=== PATIENT | male | born 1980 | race Caucasian/White ===

== ENCOUNTER 2016-05-07 18:23 | Emergency (ER) | payer SELFPAY ==
[2016-05-07] MEDS ORDERED: DEXAMETHASONE SOD PHOS INJ 10 MG/1 ML VIAL IM ONE (23:04)
--- NOTE | 2016-05-07 23:04 | ER Document Report ---
ED Extremity Problem, Lower - General Chief Complaint: Leg Pain Stated Complaint: LEFT LEG NUMBNESS Mode of Arrival: Ambulatory Information source: Patient Notes: 36 y/o M presents to ED intermittently persistent numbness to right leg. Pt reports noted numbness to right mid anterior thigh that began last week. Reports numbness has intermittently persisted and seems to have progressed to lateral upper right tib fib area. 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 States has had some mild lower back pain this week as well. Patient states he came into the ED because he has a family member who has a history of blood clots and googled symptoms and is concerned he may have a blood clot. Denies leg swelling, erythema, or warmth. Denies fall or trauma, fever, extremity weakness, saddle numbness, bowel or bladder disfunction. Denies hx of intravenous drug use. TRAVEL OUTSIDE OF THE [place] IN LAST 30 DAYS: No - HPI Patient complains to provider of: Altered sensation Location: Leg Severity: Mild Pain Level: 2 Recent injury: No Exacerbated by: Nothing Relieved by: Nothing - Related Data Allergies/Adverse Reactions: No Known Allergies Allergy (Verified 05/07/16 18:34) Past Medical History - General Information source: Patient - Social History Smoking Status: Never Smoker Frequency of alcohol use: None Drug Abuse: None Lives with: Family Family History: None, Hypertension Patient has suicidal ideation: No Patient has homicidal ideation: No Pulmonary Medical History: Reports: Hx Asthma Renal/ Medical History: Denies: Hx Peritoneal Dialysis Musculoskeltal Medical History: Reports Hx Musculoskeletal Trauma Psychiatric Medical History: Reports: Hx Attention Deficit Hyperactivity Disorder Traumatic Medical History: Reports: Hx Fractures - forearm Past Surgical History: Reports: Hx Orthopedic Surgery - RFA - Immunizations Immunizations up to date: Yes Hx Diphtheria, Pertussis, Tetanus Vaccination: Yes - 02/07/2012 Review of Systems - Review of Systems Constitutional: No symptoms reported EENT: No symptoms reported Cardiovascular: No symptoms reported Respiratory: No symptoms reported Gastrointestinal: No symptoms reported Genitourinary: No symptoms reported Male Genitourinary: No symptoms reported Musculoskeletal: See HPI Skin: No symptoms reported Hematologic/Lymphatic: No symptoms reported Neurological/Psychological: See HPI -: Yes All other systems reviewed and negative Physical Exam - Vital signs Vitals: Temp Pulse Resp BP Pulse Ox 97.7 F 64 16 121/72 98 05/07/16 18:35 05/07/16 18:35 05/07/16 18:35 05/07/16 18:35 05/07/16 18:35 Interpretation: Normal - General General appearance: Appears well, Alert In distress: None - HEENT Head: Normocephalic, Atraumatic Eyes: Normal Pupils: PERRL - Respiratory Respiratory status: No respiratory distress Chest status: Nontender Breath sounds: Normal Chest palpation: Normal - Cardiovascular Rhythm: Regular Heart sounds: Normal auscultation Murmur: No Pulses: Normal: Radial, Posterior tibial, Dorsalis pedis Normal capillary refill: Yes - Abdominal Inspection: Normal Distension: No distension Bowel sounds: Normal Tenderness: Nontender Organomegaly: No organomegaly - Back Back: Tender - Mild tenderness to palpation to bilateral paraspinal musculature lower lumbar level. Full range of motion without increased or worsening paresthesias or neurologic deficits.. No: Normal, Nontender, Deformity/step-off , CVA tenderness, Vertebra tenderness, Scars, Scoliosis, Wounds, Other - Extremities General upper extremity: Normal inspection, Nontender, Normal color, Normal ROM , Normal strength, Normal temperature. No: Edema General lower extremity: Normal inspection, Nontender, Normal color, Normal ROM , Normal strength, Normal temperature, Normal weight bearing, Other - Patient has localized mild numbness/decreased fine sensation to anterior lateral right lower extremity/tib-fib area at L4/L5 dermatome distribution level. Motor function intact. Neurovascular function and sensation to foot and upper leg and all of posterior leg is intact.. No: Edema, Lani's sign - Neurological Neuro grossly intact: Yes Cognition: Normal Orientation: AAOx4 Ortiz Coma Scale Eye Opening: Spontaneous Ortiz Coma Scale Verbal: Oriented Ortiz Coma Scale Motor: Obeys Commands Ortiz Coma Scale Total: 15 Speech: Normal Cranial nerves: Normal Cerebellar coordination: Normal Motor strength normal: LUE, RUE, LLE, RLE Additional motor exam normals: Equal patternmaker Sensory: Normal Knee - Reflex grade: 2 = Normal - Psychological Associated symptoms: Normal affect, Normal mood - Skin Skin Temperature: Warm Skin Moisture: Dry Skin Color: Normal Course - Re-evaluation Re-evalutation: 05/07/16 23:08 Patient hemodynamically stable, in no distress, afebrile. X-rays unremarkable. Ultrasound of right lower leg negative for DVT. The patient presents with back pain without signs of spinal cord compression, cauda equina syndrome, infection, aneurysm, or other serious etiology. The patient is neurologically intact, independently and steadily ambulatory without paresthesias or neurological deficits. Given the extremely low risk of these diagnoses further testing and evaluation for these possibilities does not appear to be indicated at this time. Patient appears stable for discharge and agrees with home care, follow-up, and ED return precautions. - Vital Signs Vital signs: Temp Pulse Resp BP Pulse Ox 97.9 F 87 17 111/74 98 05/07/16 23:20 05/07/16 23:20 05/07/16 23:20 05/07/16 23:20 05/07/16 23:20 - Diagnostic Test Radiology reviewed: Image reviewed, Reports reviewed Discharge - Discharge Clinical Impression: Lumbar radiculopathy Low back pain Qualifiers: Chronicity: chronic Back pain laterality: bilateral Sciatica presence: without sciatica Qualified Code(s): M54.5 - Low back pain Condition: Stable Disposition: HOME, SELF-CARE Additional Instructions: LOW BACK PAIN: Three out of every four people will have an episode of disabling back pain during their lifetime. Most commonly the pain is due to straining of the muscles and ligaments in the low back. Usual treatment includes: (1) Rest on a firm surface. Avoid lying on your stomach. (2) Ice pack the painful area. After a few days, gentle heat may be used intermittently to relax the area, or ice packs can be continued. (3) Medication may be needed -- muscle relaxers and antiinflammatory medicines are commonly used. (4) As the back improves, exercises are prescribed to strengthen the back and abdominal muscles. Your doctor will advise you on the proper care for your back at each stage in your recovery. You may be better in a few days -- or healing may take several weeks. If new symptoms of a "herniated disc" (radiation of pain, numbness, or tingling down the back of the leg or weakness in the leg) occur, you should be re-examined. Further testing may be necessary. Radiculopathy Radiculopathy is irritation of a nerve. Sometimes this is called "pinched nerve." The pain can be sharp and stabbing, constant and dull, or burning in nature. The pain can occur in any area of the chest, shoulders, or arms. Sometimes the pain is provoked by coughing or moving. Radiculopathy can be caused by physical pressure on a nerve, such as a herniated disc or swollen joint in the spine. It can also be caused by viral infections within the nerve or by nerve damage due to diabetes or blood vessel disease. Radicular pain is treated with antiinflammatory medicine. Injections may help resistant cases, if we can identify a single nerve that's causing the pain. Surgery is usually not necessary. If symptoms do not improve with time, you may need additional testing, such as an MRI or EMG (electromyogram). Return if there is local weakness or numbness, shortness of breath, increasing pain, or other new symptoms. STEROID MEDICATION: You have been given an injection of medicine of the cortisone/steroid class. This medication is used to control inflammation or allergy. It is often continued as a pill for a short period of time, until the acute process subsides. There are usually no side effects from short-term use of cortisone-like medications. Some persons feel an increased sense of well-being and are not sleepy at bedtime. Long-term use of cortisone medications is best avoided, unless required for a severe condition. If your condition does not remit, or relapses after the course of corticosteroid medication, you should consult your physician. Anti-Inflammatory Medication You have received a prescription for an antiinflammatory agent. This is an excellent, safe drug for pain control. In addition, it has potent antiinflammatory effects which are beneficial, especially in the treatment of injuries, arthritis, or tendonitis. It's best to take this medicine with food. Persons with ulcer disease or allergy to aspirin should notify their physician of this before taking this drug. Take the medication exactly as prescribed. Don't take additional doses unless instructed to do so by your doctor. If you develop wheezing, shortness of breath, hives, faintness, stomach pain, vomiting, or dark black stools, return for re-evaluation at once. MUSCLE RELAXERS: Muscle relaxing medications are usually prescribed for acute muscle spasm or injury to the neck and back. They are often combined with antiinflammatory pain medication for increased relief. You may stop the muscle relaxer when the pain and stiffness have improved. Start the medication again if spasms recur. Muscle relaxers may cause drowsiness, especially with the first dose. Do not operate machinery or drive while under the effects of the medication. Most muscle relaxers last up to 24 hours. Do not combine the medication with alcohol. ICE PACKS: Apply ice packs frequently against the painful area. Many different schedules are recommended, such as "20 minutes on, 20 minutes off" or "one hour ice, two hours rest." If you need to work, you may need to go longer between ice treatments. You should plan to have the area ice packed AT LEAST one fourth of the time. The ice should be applied over the wrap, tape, or splint, or over a layer of cloth -- not directly against the skin. Some ice bags have a built-in cloth and can be put directly on the skin. WARM PACKS: After approximately two days, apply gentle heat (such as a heating pad or hot water bottle) for about 20 to 30 minutes about every two hours -- at least four times daily. Warmth and elevation will help you make a more rapid recovery , and will ease the pain considerably. Do not use HOT heat, and never apply heat for longer than 30 minutes. The continuous heat can invisibly damage skin and muscles -- even when no burn is seen on the surface. Damaged muscles can make you MORE sore. FOLLOW-UP CARE: Your ultrasound was negative for blood clot today and your lower back x-ray was normal. Follow-up with your primary care provider this week. Return to the emergency department for any worsening symptoms or concerns. Prescriptions: Methocarbamol [Robaxin 500 mg Tablet] 500 mg PO Q8HP PRN #10 tablet PRN Reason: Naproxen 500 mg PO BIDP PRN #10 tablet PRN Reason: Referrals: ABBE ZAMORANO MD [ACTIVE STAFF] - Follow up tomorrow
[2016-05-07 23:34] VITALS: BP 111/74
--- NOTE | 2016-05-08 17:41 | XCELERA REPORT ---
[address] [address] Lower Extremity Venous Evaluation Name: HUBER OWEN Age: 36 yrs Gender: Male : 1980 Patient Status: Preadmit Patient Location: ER Study Date: 05/07/2016 09:12 PM Procedure: Color flow and duplex imaging of the veins of the right lower extremity as well as the left Common Femoral vein. Reason For Study: RLE pain Ordering Physician: VERNA CARDOZO Performed By: Anatoly Osullivan Right Sided Venous Evaluation Normal vessel filling wall to wall, compression and augmentation as well as Colour flow down to the infrageniculate veins. Left Sided Venous Evaluation The left common femoral vein is fully compressible. Spontaneous and phasic flow is present in the left common femoral vein. Critical Findings Called in to the ER at about 1700. Interpretation Summary No duplex evidence of DVT or obstruction in the right lower extremity nor in the left Common Femoral vein. : VERNA CARDOZO > Zhao Bull
== END 2016-05-07 23:27 | disposition home or self-care (01) ==
LOC: ER 18:23
DX: M54.16 Radiculopathy, lumbar region (principal); R20.0 Anesthesia of skin; M54.5 Low back pain; J45.909 Unspecified asthma, uncomplicated; Z82.49 Family history of ischemic heart disease and other diseases of the circulatory system
CPT/HCPCS: 99284; 96372; 93971 ×2; 72110; J1100

== ENCOUNTER 2017-02-28 15:55 | Emergency (ER) | payer OTHER ==
[2017-02-28] MEDS ORDERED: KETOROLAC TROMETHAMINE INJ/PF 30 MG/1 ML SDV IM ONE (16:59)
[2017-02-28] MEDS ORDERED: DEXAMETHASONE SOD PHOS INJ 10 MG/1 ML VIAL IM ONE (16:59)
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
[2017-02-28] MEDS ORDERED: HYDROCODONE/ACETAMINOPHEN 5-325 MG (6 TAB/ER DISP) PO PRN (18:14)
[2017-02-28 18:35] VITALS: BP 124/71
== END 2017-02-28 18:35 | disposition home or self-care (01) ==
LOC: ER 15:55
DX: S32.029A Unspecified fracture of second lumbar vertebra, initial encounter for closed fracture (principal); V48.5XXA Car driver injured in noncollision transport accident in traffic accident, initial encounter; J45.909 Unspecified asthma, uncomplicated; F17.200 Nicotine dependence, unspecified, uncomplicated
CPT/HCPCS: 99283; 96372; 72110; J1885; J1100

== ENCOUNTER 2017-07-19 18:27 | Emergency (ER) | payer SELFPAY ==
[2017-07-19 18:37] VITALS: BP 121/69
[2017-07-19] MEDS ORDERED: OXYCODONE-ACETAMINOPHEN 5-325 MG TABLET PO ONE (20:22)
[2017-07-19] MEDS ORDERED: SULFAMETHOXAZOLE/TRIMETHOPRIM 800-160 MG TABLET PO ONE (20:22)
[2017-07-19] MEDS ORDERED: LIDOCAINE 1% INJ-PF (10 MG/ML) 30 ML SDV INJ ONE (20:22)
[2017-07-19] MEDS ORDERED: CEPHALEXIN 500 MG CAPSULE PO ONE (20:22)
--- NOTE | 2017-07-19 20:23 | ER Document Report ---
HPI - HPI Pain Level: 4 Context: Patient is a 37-year-old male presents emergent primary the chief complaint of abscess to the right ventral forearm. Patient states that he had had sites all over his arms that he had been taking it intermittently over the past couple weeks but this 1 got worse over the past couple of days with worsening swelling , redness, tenderness. He denies any previous history of out allergies or previous abscesses, history of MRSA. Denies any IV drug use - REPRODUCTIVE Reproductive: DENIES: : Past Medical History - Social History Smoking Status: Current Every Day Smoker Family History: None, Hypertension Pulmonary Medical History: Reports: Hx Asthma Renal/ Medical History: Denies: Hx Peritoneal Dialysis Musculoskeltal Medical History: Reports Hx Musculoskeletal Trauma Psychiatric Medical History: Reports: Hx Attention Deficit Hyperactivity Disorder Traumatic Medical History: Reports: Hx Fractures - forearm Past Surgical History: Reports: Hx Orthopedic Surgery - RFA - Immunizations Immunizations up to date: Yes Hx Diphtheria, Pertussis, Tetanus Vaccination: Yes - 02/07/2012 Vertical Provider Document - CONSTITUTIONAL Agree With Documented VS: Yes Notes: PHYSICAL EXAM GENERAL: Alert, interacts well. EXTREMITIES: Moves all 4 extremities spontaneously. [employer] strength equal bilaterally with capillary refill less than 2 seconds in bilateral upper extremity digits NEUROLOGICAL: Alert and oriented x4. Normal speech. PSYCH: Normal affect, normal mood. SKIN: Warm, dry, normal turgor. Patient with overlying edema, erythema and induration with central fluctuance of the right upper extremity anterior forearm consistent with abscess without any active drainage or bleeding - INFECTION CONTROL TRAVEL OUTSIDE OF THE [place] IN LAST 30 DAYS: No Course - Re-evaluation Re-evalutation: 07/19/17 21:13 Patient is a 37-year-old male presents with a abscess in the right upper extremity medial forearm. Site was anesthetized and incision and drained for 15 cc of purulent material. Packing was placed. No concerns for septic joint, sepsis given stable vital signs and localized infection. Will treat with p.o. antibiotics instruction to follow-up in 3 days. Patient agrees with plan stable for discharge home - Vital Signs Vital signs: Temp Pulse Resp BP Pulse Ox 99.1 F 86 20 121/69 96 07/19/17 18:36 07/19/17 18:36 07/19/17 18:36 07/19/17 18:36 07/19/17 18:36 Procedures - Incision and Drainage Right Arm Type: Simple Anesthetic type: 1% Lidocaine mL's of anesthetic: 20 Blade size: 11 I&D procedure: Betadine prep applied, Iodoform packing placed, Sterile dressing applied Incision Method: Incision made by scalpel Amount/type of drainage: 15 cc of purulent drainage Discharge - Discharge Clinical Impression: Abscess Condition: Good Disposition: HOME, SELF-CARE Additional Instructions: Please return in 3 days to have your wound packing removed and reevaluated. ABSCESS: You have an abscess (boil). This a pus-forming infection, usually due to staph. Some boils may be left to drain on their own, but most require lancing. From the time the tender lump first appears, it may be three or four days before the abscess is ready to eliz. Local heat and rest help at this stage of treatment. An antibiotic may prevent spread of the infection. Once the abscess is opened, packing may be placed into it. This is done so pus is not sealed inside by premature closure of the cavity. The packing will be removed at your follow-up visit or you may be advised to remove it yourself at home. Sometimes this packing must be replaced a few times during healing. The wound will heal with surprisingly little scar. Depending on the size and location of an abscess, healing can take one to four weeks. You may shower and wash the area around the incision site two or three times a day. Antibiotics may be prescribed, but are usually not necessary after an abscess has been drained. If you develop fever, chills, worsening pain, or increasing swelling in the area, call the doctor or return immediately. POST INCISION AND DRAINAGE: You have had an incision made to allow drainage of an abscess. The incision must remain open so that pus and debris can drain from the wound. If the abscess cavity is large, packing is placed. This keeps the tissues from collapsing and trapping pus inside, while the body shrinks the cavity. The packing may need to be replaced every day or two. The physician will instruct you on the packing. Keep a bulky dressing over the area. Replace it if it becomes saturated with blood or pus. Do not disturb the packing (if present). You may shower and cleanse the area with gentle soap and warm water two or three times a day. Local warmth may be soothing, and may promote faster healing. Return if you develop high fever or chills, or if you note spreading redness, increasing swelling, or increasing tenderness. MRSA CELLULITIS: You have an infection of your skin and underlying soft tissues called cellulitis. This is due to bacteria, which can enter through any break in the skin, or even through an irritated hair follicle. Untreated, cellulitis will usually worsen and may form an abscess which requires draining. Although many bacterial organisms can cause cellulitis and abscess formations, the most likely bacteria is Methicillin-Resistant Staph Aureus, or MRSA for short. Antibiotics are required. Usually, warm packs or warm soaks, and elevation of the infected area are recommended. You should start getting better within 24 to 36 hours. Most infections respond quickly to the right medication. Follow-up care is important, however, to check for abscess (boil) formation, unsuspected foreign body, or resistant infection. If you develop fever, chills, or if the area of infection is becoming rapidly more swollen or painful, call the doctor at once. ORAL NARCOTIC MEDICATION: You have been given a prescription for pain control. This medication is a narcotic. It's best taken with food, as nausea can result if taken on an empty stomach. Don't operate machinery or drive within six hours of taking this medication. Do not combine this medicine with alcohol, or with any medication which can cause sedation (such as cold tablets or sleeping pills) unless you get permission from the physician. Narcotics tend to cause constipation. If possible, drink plenty of fluids and eat a diet high in fiber and fruits. CEPHALEXIN: The antibiotic you've been prescribed is a member of the cephalosporin class. This type of antibiotic covers a wide variety of infections, including those of the skin, lungs, and urinary tract. It's useful for staph infections. This antibiotic is slightly similar to the penicillin family. In rare cases , a person who is allergic to penicillin will also be allergic to this medication. If you have had a severe allergic reaction to penicillin, and have not taken this antibiotic since that time, notify your doctor. Antibiotics which cover many germs ("broad spectrum" antibiotics) are more likely to cause diarrhea or "yeast" infections. Women prone to vaginal yeast problems may suffer an attack after taking this antibiotic. In infants, oral thrush (white spots "stuck" on the cheek) or yeast diaper rash may result. See your doctor if these problems occur. Call at once if you develop itching, hives , shortness of breath, or lightheadedness. TRIMETHOPRIM-SULFA: You have been given a prescription for trimethoprim-sulfa (TMS, Septra, Bactrim). This is a combination antibiotic of the sulfa class, often used for urinary tract infections, middle ear infections, bronchitis, shigella intestinal infection, and Pneumocystis pneumonia. TMS is usually well-tolerated. Occasional side effects include nausea and decreased appetite. Septra is not recommended for infants less than two months of age. Do not take this medication if you have experienced severe side effects or allergy to sulfa medicine. You should stop this medicine at once and contact your physician if you develop any rash, joint pain, shortness of breath, bruising, or jaundice ( yellow color in the skin), or if you develop any other new or unusual symptoms. FOLLOW-UP CARE: Most simple abscesses will not require a follow up visit. If you had packing placed in the abscess, remove it as instructed by the physician. If you have been referred to a physician for follow-up care, call the physicians office for an appointment as you were instructed or within the next two days. If you experience worsening or a significant change in your symptoms, return to the Emergency Department at any time for re-evaluation. Prescriptions: Cephalexin Monohydrate [Keflex 500 mg Capsule] 500 mg PO QID #20 capsule Sulfamethoxazole/Trimethoprim [Bactrim Ds Tablet] 1 each PO BID #10 tablet
[2017-07-19] MEDS ORDERED: HYDROCODONE/ACETAMINOPHEN 5-325 MG (6 TAB/ER DISP) PO PRN (21:15)
== END 2017-07-19 21:25 | disposition home or self-care (01) ==
LOC: ER 18:27
DX: L02.413 Cutaneous abscess of right upper limb (principal); F17.200 Nicotine dependence, unspecified, uncomplicated; J45.909 Unspecified asthma, uncomplicated
CPT/HCPCS: 99283; 87070; 87205; 87077; 87186; 10060; A6266; J3490

== ENCOUNTER 2017-11-29 12:56 | Emergency (ER) | payer SELFPAY ==
[2017-11-29 13:03] VITALS: BP 118/71
--- NOTE | 2017-11-29 13:12 | ER Document Report ---
ED Medical Screen (RME) - General Chief Complaint: Foreign Body Stated Complaint: SYRINGE BROKE OFF IN RIGHT ARM Time Seen by Provider: 11/29/17 13:09 TRAVEL OUTSIDE OF THE [place] IN LAST 30 DAYS: No - HPI Notes: 11/29/17 13:11 Heroin user states needle and right antecubital area for 3 weeks also requesting detox referral - Related Data Allergies/Adverse Reactions: No Known Allergies Allergy (Verified 11/29/17 12:57) Past Medical History - Social History Frequency of alcohol use: Rare Drug Abuse: Heroin Family history: CAD, CVA, Hyperlipidemia, Hypertension, Malignancy. denies: Arthritis, DM, Thyroid Disfunction Pulmonary Medical History: Reports: Hx Asthma Renal/ Medical History: Denies: Hx Peritoneal Dialysis Musculoskeltal Medical History: Reports Hx Musculoskeletal Trauma Psychiatric Medical History: Reports: Hx Attention Deficit Hyperactivity Disorder Traumatic Medical History: Reports: Hx Fractures - forearm Past Surgical History: Reports: Hx Orthopedic Surgery - RFA - Immunizations Immunizations up to date: Yes Hx Diphtheria, Pertussis, Tetanus Vaccination: Yes - 02/07/2012 Review of Systems - Review of Systems Constitutional: Other - Performed by detox referral Physical Exam - Vital signs Vitals: Temp Pulse Resp BP Pulse Ox 97.9 F 71 16 118/71 97 11/29/17 13:02 11/29/17 13:02 11/29/17 13:02 11/29/17 13:02 11/29/17 13:02 - General General appearance: Appears well In distress: None - Respiratory Respiratory status: No respiratory distress Chest status: Nontender Breath sounds: Normal Chest palpation: Normal Course - Vital Signs Vital signs: Temp Pulse Resp BP Pulse Ox 97.9 F 71 16 118/71 97 11/29/17 13:02 11/29/17 13:02 11/29/17 13:02 11/29/17 13:02 11/29/17 13:02
--- NOTE | 2017-11-29 13:55 | RADIOLOGY REPORT (SQ) ---
EXAM DESCRIPTION: ELBOW RIGHT OVER 2 VIEWS COMPLETED DATE/TIME: 11/29/2017 1:44 pm REASON FOR STUDY: foreign body COMPARISON: None. NUMBER OF VIEWS: Four views. TECHNIQUE: AP, lateral, and both oblique radiographic images acquired of the right elbow. LIMITATIONS: None. FINDINGS: MINERALIZATION: Normal. BONES: No acute fracture or dislocation. No worrisome bone lesions. JOINT: No effusion. SOFT TISSUES: 6 mm linear metallic density in the anterior soft tissues level of elbow. OTHER: No other significant finding. IMPRESSION: Needle foreign body. TECHNICAL DOCUMENTATION: JOB ID: [id number] [employer]- All Rights Reserved Reading location - IP/workstation name: [email or web address]
--- NOTE | 2017-11-29 14:01 | ER Document Report ---
ED Foreign Body - General Chief Complaint: Foreign Body Stated Complaint: SYRINGE BROKE OFF IN RIGHT ARM Time Seen by Provider: 11/29/17 13:09 Mode of Arrival: Ambulatory Information source: Patient Notes: 37-year-old IV heroin user had part of a needle break off in his right antecubital space about 3 weeks ago. No fever chills or abscess. No chest pain or shortness of breath. No back pain. He wants it removed and he also is seeking a referral to [facility] in [place]. He called them today and they told him he needed a ER referral. He last used heroin yesterday. He denies withdrawal symptoms today. His vital signs are stable. TRAVEL OUTSIDE OF THE [place] IN LAST 30 DAYS: No - Related Data Allergies/Adverse Reactions: No Known Allergies Allergy (Verified 11/29/17 12:57) Past Medical History - General Information source: Patient - Social History Smoking Status: Current Every Day Smoker Frequency of alcohol use: Rare Drug Abuse: Heroin Lives with: Spouse/Significant other Family History: None Patient has suicidal ideation: No Patient has homicidal ideation: No Pulmonary Medical History: Reports: Hx Asthma Renal/ Medical History: Denies: Hx Peritoneal Dialysis Musculoskeletal Medical History: Reports Hx Musculoskeletal Trauma Psychiatric Medical History: Reports: Hx Attention Deficit Hyperactivity Disorder Traumatic Medical History: Reports: Hx Fractures - forearm Past Surgical History: Reports: Hx Orthopedic Surgery - RFA - Immunizations Immunizations up to date: Yes Hx Diphtheria, Pertussis, Tetanus Vaccination: Yes - 02/07/2012 Review of Systems - Review of Systems Constitutional: No symptoms reported EENT: No symptoms reported Cardiovascular: No symptoms reported Respiratory: No symptoms reported Gastrointestinal: No symptoms reported Genitourinary: No symptoms reported Male Genitourinary: No symptoms reported Musculoskeletal: No symptoms reported Skin: See HPI Hematologic/Lymphatic: No symptoms reported Neurological/Psychological: See HPI Physical Exam - Vital signs Vitals: Temp Pulse Resp BP Pulse Ox 97.9 F 71 16 118/71 97 11/29/17 13:02 11/29/17 13:02 11/29/17 13:02 11/29/17 13:02 11/29/17 13:02 Interpretation: Normal - General General appearance: Appears well, Alert - HEENT Head: Normocephalic, Atraumatic Eyes: Normal Pupils: PERRL Neck: Supple - Respiratory Respiratory status: No respiratory distress Chest status: Nontender Breath sounds: Normal Chest palpation: Normal - Cardiovascular Rhythm: Regular Heart sounds: Normal auscultation Murmur: No - Back Back: Normal, Nontender - Extremities General upper extremity: Normal inspection, Nontender, Normal color, Normal ROM , Normal temperature General lower extremity: Normal inspection, Nontender, Normal color, Normal ROM , Normal temperature, Normal weight bearing. No: Lani's sign Elbow: Nontender - Hard antecubital veins in the right with multiple puncture sites there is no signs of infection. He showed me the vein that has portion of needle in it there is no inflammation swelling or tenderness. - Neurological Neuro grossly intact: Yes Cognition: Normal Orientation: AAOx4 Ortiz Coma Scale Eye Opening: Spontaneous Turrell Coma Scale Verbal: Oriented Ortiz Coma Scale Motor: Obeys Commands Turrell Coma Scale Total: 15 Speech: Normal Motor strength normal: LUE, RUE, LLE, RLE Sensory: Normal - Psychological Associated symptoms: Normal affect, Normal mood - Skin Skin Temperature: Warm Skin Moisture: Dry Skin Color: Normal Skin irregularity: negative: Rash Course - Re-evaluation Re-evalutation: 11/29/17 X-ray shows a metal foreign body in the soft tissue of the right antecubital space on x-ray. 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 They are addicting. Narcotics cause euphoria, but it often takes increasing amounts to "feel good" and avoid withdrawal symptoms. Overdose of narcotics causes small pupils, coma, and decreased breathing. It's a common cause of . Purity of street narcotics is unpredictable. Injection of narcotics is risky for abscesses, endocarditis (heart infection), pneumonia, and AIDS. Withdrawal from narcotics causes goose bumps, watery mouth, sweating, nasal congestion, muscle aches, abdominal cramps, vomiting, and diarrhea. There 's often restlessness and confusion. Treatment programs are available, but you must make the decision to quit. Medication (such as clonidine) can be prescribed to control the symptoms of withdrawal. INSTRUCTIONS FOR HOME CARE FOLLOWING DRUG OVERDOSAGE: The doctor feels it's safe for you to go home. You will need to be observed. If charcoal and a laxative was given to you, expect some loose black stools soon. Take no medications unless approved by a physician, including alcohol. If drowsy, lie on your stomach or side for sleeping to avoid aspiration if vomiting occurs. Take only liquids by mouth until there is no more nausea. FOR THE OBSERVER: Observe the patient for the next 24 hours and call or go to the hospital if any of the following are noted: prolonged or repeated vomiting, difficulty in arousing, convulsions (seizures or fits), fever, persistent cough, breathing that is too slow or too rapid, or confused or bizarre behavior. If a counselling visit has been arranged, make sure the patient attends. Call the physician or poison control if you have questions. FOLLOW-UP CARE: If you have been referred to a physician for follow-up care, call the physician s office for an appointment as you were instructed or within the next two days. If you experience worsening or a significant change in your symptoms, notify the physician immediately or return to the Emergency Department at any time for re-evaluation. Referrals: MOSES HERNANDEZ MD [ACTIVE STAFF] - Follow up as needed RADHA MARTIN MD [ACTIVE STAFF] - Follow up as needed
== END 2017-11-29 14:44 | disposition home or self-care (01) ==
LOC: ER 12:56
DX: S41.141A Puncture wound with foreign body of right upper arm, initial encounter (principal); F11.10 Opioid abuse, uncomplicated; W46.1XXA Contact with contaminated hypodermic needle, initial encounter; F17.200 Nicotine dependence, unspecified, uncomplicated; J45.909 Unspecified asthma, uncomplicated
CPT/HCPCS: 99283

== ENCOUNTER 2017-12-09 14:22 | Emergency (ER) | payer SELFPAY ==
[2017-12-09 14:28] VITALS: BP 122/81
[2017-12-09] MEDS ORDERED: PENICILLIN V POTASSIUM 500 MG TABLET PO ONE (15:43)
[2017-12-09] MEDS ORDERED: HYDROCODONE/ACETAMINOPHEN 5-325 MG TABLET PO ONE (15:44)
[2017-12-09] MEDS ORDERED: IBUPROFEN 600 MG TABLET PO ONE (15:44)
--- NOTE | 2017-12-09 15:52 | ER Document Report ---
HPI - HPI Pain Level: 5 Notes: Patient is a 37-year-old male who presents with chief complaint of facial pain and dental pain to the right lower mouth. Patient reports this is been going on for several months however is worsening significantly over the past few days. Patient denies any fever. States he has taken ibuprofen without relief. - CONSTITUTIONAL Constitutional: DENIES: Fever, Chills - EENT EENT: DENIES: Sore Throat, Ear Pain, Eye problems - NEURO Neurology: DENIES: Headache, Weakness, Vision blurred, Dizzinesss / Vertigo - CARDIOVASCULAR Cardiovascular: DENIES: Chest pain - RESPIRATORY Respiratory: DENIES: Trouble Breathing, Coughing - GASTROINTESTINAL Gastrointestinal: DENIES: Abdominal Pain, Black / Bloody Stools - URINARY Urinary: DENIES: Dysuria, Urgency, Frequency - REPRODUCTIVE Reproductive: DENIES: : - MUSCULOSKELETAL Musculoskeletal: DENIES: Extremity pain Past Medical History - General Information source: Patient - Social History Smoking Status: Current Every Day Smoker Chew tobacco use (# tins/day): No Frequency of alcohol use: None Drug Abuse: None Family History: None Patient has suicidal ideation: No Patient has homicidal ideation: No Pulmonary Medical History: Reports: Hx Asthma Renal/ Medical History: Denies: Hx Peritoneal Dialysis Musculoskeletal Medical History: Reports Hx Musculoskeletal Trauma Psychiatric Medical History: Reports: Hx Attention Deficit Hyperactivity Disorder Traumatic Medical History: Reports: Hx Fractures - forearm Past Surgical History: Reports: Hx Orthopedic Surgery - RFA - Immunizations Immunizations up to date: Yes Hx Diphtheria, Pertussis, Tetanus Vaccination: Yes - 02/07/2012 Vertical Provider Document - CONSTITUTIONAL Notes: PHYSICAL EXAMINATION: GENERAL: Well-appearing, well-nourished and in no acute distress. HEAD: Atraumatic, normocephalic. EYES: Pupils equal round extraocular movements intact, conjunctiva are normal. ENT: Nares patent, no drainable abscess identified, swelling and erythema noted to the right lower jawline from tooth #[id number]. NECK: Normal range of motion LUNGS: No respiratory distress Musculoskeletal: Normal range of motion NEUROLOGICAL: Normal speech, normal gait. PSYCH: Normal mood, normal affect. SKIN: Warm, Dry, normal turgor, no rashes or lesions noted. - INFECTION CONTROL TRAVEL OUTSIDE OF THE [place] IN LAST 30 DAYS: No Course - Re-evaluation Re-evalutation: 12/09/17 15:50 Patient will be treated for dental infection and discharged home in stable condition. Expressed the importance of following up with a dentist with patient. - Vital Signs Vital signs: Temp Pulse Resp BP Pulse Ox 98.5 F 63 20 122/81 94 12/09/17 14:27 12/09/17 14:27 12/09/17 14:27 12/09/17 14:27 12/09/17 14:27 Discharge - Discharge Clinical Impression: Dental infection Condition: Stable Disposition: HOME, SELF-CARE Additional Instructions: TOOTHACHE: Your pain is due to dental decay. The tooth must be repaired in order for you to feel better. You will, therefore, be referred to a dentist. We do not have dentists on the staff at [facility]. Severe swelling or drainage around a tooth usually means a dental abscess. This also requires evaluation and treatment by the dentist, but antibiotics may be prescribed while awaiting dental treatment. You should be rechecked immediately if you develop major swelling of the face, increasing pain, a lump in the jaw or gums, headache, difficulty swallowing, or fever. PENICILLIN V K: You have been given a prescription for Penicillin VK. Your physician has determined that this is the best antibiotic for your condition. Pen VK can be taken with meals, however more of the antibiotic gets into the bloodstream if it's taken on an empty stomach. Penicillin usually has no side effects. However, allergy to penicillins is common. If you have had an allergic reaction to any drug of the penicillin family, you should never take any other penicillin. Notify your doctor at once if you develop hives, itching, swelling, faintness, or shortness of breath. FOLLOW-UP CARE: You have been referred for follow-up care to the dentists listed below. Call the dentists office for an appointment as you were instructed or within the next two days. If you experience worsening or a significant change in your symptoms, notify the physician immediately or return to the Emergency Department at any time for re-evaluation. [facility] [address] Prescriptions: Penicillin V Potassium [Penicillin Vk 500 mg Tablet] 500 mg PO BID #20 tablet
== END 2017-12-09 15:57 | disposition home or self-care (01) ==
LOC: ER 14:22
DX: K04.7 Periapical abscess without sinus (principal); F17.200 Nicotine dependence, unspecified, uncomplicated; J45.909 Unspecified asthma, uncomplicated
CPT/HCPCS: 99282

== ENCOUNTER 2018-08-29 09:59 | Inpatient (IN) | payer SELFPAY ==
[2018-08-29] MEDS ORDERED: NALOXONE HCL INJ/PF 0.4 MG/1 ML SDV IV ONE (10:28)
[2018-08-29 10:53] LABS: ABSOLUTE MONOCYTES (AUTO) 1.8 10^3/uL (0.1-1.4); ABSOLUTE NEUT (AUTO) 14.2 10^3/uL (1.7-8.2); BASOPHILS % (AUTO) 0.1 % (0-2); LYMPHOCYTES % (AUTO) 5.7 % (13-45); MEAN CORPUSCULAR HEMOGLOBIN 31.5 pg (27.0-33.4); MEAN CORPUSCULAR HGB CONC 33.3 g/dL (32.0-36.0); MEAN CORPUSCULAR VOLUME 94 fl (80-97); MONOCYTES % (AUTO) 10.9 % (3-13); PLATELET COUNT 267 10^3/uL (150-450); RED BLOOD COUNT 5.08 10^6/uL (4.35-5.55); SEGMENTED NEUTROPHILS % (AUTO) 83.3 % (42-78); TOTAL CELLS COUNTED % (AUTO) 100 %
[2018-08-29] MEDS ORDERED: NORMAL SALINE 1000 ML 1,000 ML IV ONE ×2 (10:56→11:57)
[2018-08-29 10:59] LABS: ALANINE AMINOTRANSFERASE 196 U/L (21-72); ALBUMIN 5.1 g/dL (3.5-5.0); ALKALINE PHOSPHATASE 71 U/L (38-126); ASPARTATE AMINO TRANSFERASE 153 U/L (17-59); BILIRUBIN,DIRECT 0.5 mg/dL (0.0-0.4); BILIRUBIN,TOTAL 0.6 mg/dL (0.2-1.3); BLOOD UREA NITROGEN 20 mg/dL (7-20); CALCIUM 9.5 mg/dL (8.4-10.2); GLUCOSE 132 mg/dL (75-110); POTASSIUM 4.9 mmol/L (3.6-5.0); TOTAL PROTEIN 8.7 g/dL (6.3-8.2)
[2018-08-29 11:04] LABS: CARBON DIOXIDE 22 mmol/L (22-30); CHLORIDE 97 mmol/L (98-107)
[2018-08-29 11:06] LABS: ACETAMINOPHEN < 10 ug/mL (10-30); ALCOHOL < 10 mg/dL (NONE DETECTED); SALICYLATE < 1.0 mg/dL (2.0-20.0)
--- NOTE | 2018-08-29 11:10 | ER Document Report ---
ED General - General Chief Complaint: Possible Overdose Stated Complaint: POSSIBLE OVERDOSE Time Seen by Provider: 08/29/18 10:19 Information source: Patient Notes: HPI: 38-year-old male that presents by EMS secondary to an admitted heroin accidental overdose. Patient denies any and all suicidal or homicidal ideation s. Mom called EMS when the patient was slightly obtunded. They did provide 0.4 mg of Narcan with improvement of mentation. Patient denies any and all symptoms other than right anterior shoulder pain which he states he suffered in April. He states he has had imaging for this. Patient denies any and all other pain including headache, neck pain, chest pain, abdominal pain, weakness or numbness. ROS: See HPI All other review of systems reviewed and otherwise negative Reviewed vital signs and nursing note as charted by RN. PHYSICAL EXAM: CONSTITUTIONAL: Patient is somnolent but arousable with stimulation HEAD: Normocephalic; atraumatic EYES: Pupils are pinpoint; Conjunctivae clear, sclerae non-icteric ENT: Normal nose; no rhinorrhea; moist mucous membranes; pharynx without lesions noted NECK: Supple without meningismus; non-tender; no cervical lymphadenopathy, no masses CARD: Regular rate and rhythm; no murmurs; symmetric distal pulses RESP: Normal chest excursion without splinting or tachypnea; breath sounds clear and equal bilaterally; no wheezes, no rhonchi, no rales ABD/GI: Normal bowel sounds; non-distended; soft, non-tender; no palpable organomegaly or masses BACK: The back appears normal and is non-tender to palpation EXT: Normal ROM in all joints; non-tender to palpation; no edema SKIN: No acute lesions noted NEURO: CN 2-12 intact; 5/5 bilateral upper and lower extremity strength with sensation intact to light touch TRAVEL OUTSIDE OF THE [place] IN LAST 30 DAYS: No - Related Data Allergies/Adverse Reactions: No Known Allergies Allergy (Verified 11/29/17 12:57) Past Medical History - Social History Smoking Status: Current Every Day Smoker Chew tobacco use (# tins/day): No Frequency of alcohol use: Heavy Drug Abuse: Heroin Family History: None Patient has suicidal ideation: No Patient has homicidal ideation: No Pulmonary Medical History: Reports: Hx Asthma Renal/ Medical History: Denies: Hx Peritoneal Dialysis Musculoskeletal Medical History: Reports Hx Musculoskeletal Trauma Psychiatric Medical History: Reports: Hx Attention Deficit Hyperactivity Diso rder Traumatic Medical History: Reports: Hx Fractures - forearm Past Surgical History: Reports: Hx Orthopedic Surgery - RFA - Immunizations Immunizations up to date: Yes Hx Diphtheria, Pertussis, Tetanus Vaccination: Yes - 02/07/2012 Physical Exam - Vital signs Vitals: Temp Pulse Resp BP Pulse Ox 98.7 F 105 H 18 92/61 L 91 L 08/29/18 10:08 08/29/18 10:08 08/29/18 10:08 08/29/18 10:08 08/29/18 10:08 Course - Re-evaluation Re-evalutation: 08/29/18 11:09 Patient is arousable with stimuli. When the patient is not stimulated he is satting 88 to 92% on room air. I will provide more Narcan given the respiratory depression. I will also send off basic labs and perform a portable x-ray of the chest. 08/29/18 11:57 Labs as recorded. Patient has no old creatinine levels ordered. BUN is normal. Transaminitis consistent with expected history. Patient is more awake and alert. Heart rate 85. Patient still denies any pain. 08/29/18 12:56 X-ray of the chest shows no acute abnormality. Patient still denies any pain. Vital signs are stable. Liter and a half of fluid has been given. Patient will be admitted to the IMCU under the hospitalist. - Vital Signs Vital signs: Temp Pulse Resp BP Pulse Ox 97.8 F 105 H 11 L 91/65 L 96 08/29/18 12:08 08/29/18 10:08 08/29/18 11:31 08/29/18 11:31 08/29/18 11:31 - Laboratory Result Diagrams: 08/29/18 09:25 08/29/18 09:25 Laboratory results interpreted by me: 08/29/18 08/29/18 08/29/18 09:25 09:25 10:42 WBC 17.0 H Seg Neutrophils % 83.3 H Lymphocytes % 5.7 L Absolute Neutrophils 14.2 H Absolute Monocytes 1.8 H Chloride 97 L Anion Gap 23 H Creatinine 2.40 H Est GFR ( Amer) 37 L Est GFR (Non-Af Amer) 31 L Glucose 132 H Direct Bilirubin 0.5 H AST 153 H ALT 196 H Total Protein 8.7 H Albumin 5.1 H Urine Protein 100 H Urine Ketones 20 H Urine Urobilinogen 2.0 H Salicylates < 1.0 L Acetaminophen < 10 L Critical Care Note - Critical Care Note Total time excluding time spent on procedures (mins): 35 Discharge - Discharge Clinical Impression: Hypoxia Drug overdose Qualifiers: Encounter type: initial encounter Injury intent: accidental or unintentional Qualified Code(s): T50.901A - Poisoning by unspecified drugs, medicaments and biological substances, accidental (unintentional), initial encounter Acute renal failure (ARF) Qualifiers: Acute renal failure type: unspecified Qualified Code(s): N17.9 - Acute kidney failure, unspecified Condition: Fair Disposition: ADMITTED INPATIENT Admitting Provider: Chris (Hospitalist) Unit Admitted: [facility]
[2018-08-29 11:11] LABS: APPEARANCE,URINE SLIGHTLY-CLOUDY; BILIRUBIN,URINE NEGATIVE (NEGATIVE); COLOR,URINE AMBER; GLUCOSE, URINE NEGATIVE (NEGATIVE); KETONES,URINE 20 mg/dL (NEGATIVE); LEUKOCYTE ESTERASE,URINE NEGATIVE (NEGATIVE); NITRITE,URINE NEGATIVE (NEGATIVE); PROTEIN,URINE 100 mg/dL (NEGATIVE); URINE SPECIFIC GRAVITY 1.025
[2018-08-29 11:28] LABS: URINE AMPHETAMINES SCREEN NEGATIVE; URINE BARBITURATES SCREEN NEGATIVE; URINE BENZODIAZEPINES SCREEN NEGATIVE; URINE COCAINE SCREEN NEGATIVE; URINE MARIJUANA (THC) SCREEN NEGATIVE; URINE METHADONE SCREEN NEGATIVE; URINE PHENCYCLIDINE SCREEN NEGATIVE
--- NOTE | 2018-08-29 11:28 | RADIOLOGY REPORT (SQ) ---
EXAM DESCRIPTION: CHEST SINGLE VIEW COMPLETED DATE/TIME: 08/29/2018 11:16 am REASON FOR STUDY: 13h; overdose with low o2 COMPARISON: None. EXAM PARAMETERS: NUMBER OF VIEWS: One view. TECHNIQUE: Single frontal radiographic view of the chest acquired. RADIATION DOSE: NA LIMITATIONS: None. FINDINGS: LUNGS AND PLEURA: No opacities, masses or pneumothorax. No pleural effusion. MEDIASTINUM AND HILAR STRUCTURES: No masses. Contour normal. HEART AND VASCULAR STRUCTURES: Heart normal in size. Normal vasculature. BONES: No acute findings. HARDWARE: None in the chest. OTHER: No other significant finding. IMPRESSION: NO ACUTE RADIOGRAPHIC FINDING IN THE CHEST. TECHNICAL DOCUMENTATION: JOB ID: [id number] [employer]- All Rights Reserved Reading location - IP/workstation name: [email or web address]
[2018-08-29 11:45] LABS: ANION GAP 23 (5-19)
[2018-08-29] MEDS ORDERED: ONDANSETRON HCL INJ/PF 4 MG/2 ML SDV IV PRN (13:23)
[2018-08-29] MEDS ORDERED: ACETAMINOPHEN 325 MG TABLET PO PRN (13:23)
[2018-08-29] MEDS ORDERED: LORAZEPAM INJ 2 MG/1 ML VIAL IV PRN (13:28)
--- NOTE | 2018-08-29 13:39 | PDOC H&P ---
History of Present Illness Admission Date/PCP: 08/29/18 13:11 Patient complains of: Drug overdose History of Present Illness: HUBER OWEN is a 38 year old male With history of heroin abuse, chronic smoker using opiates at home brought in by EMS after mom called them to notify that patient is not responding well. EMS gave him 0.4 mg of Narcan with improvement. In the emergency room another dose of Narcan was given and the patient admitted to be using heroin at home. Unable to get further information from the patient. Work-up in the ER shows creatinine of 2.4 indicating ERMELINDA with a WBC count of 17,000. Patient was hypotensive in the emergency room he was given 1 L of fluid blood pressure came up to 100/60. Medical consult was called for admission. Past Medical History Pulmonary Medical History: Reports: Asthma Psychiatric Medical History: Reports: Attention Deficit Hyperactivity Disorder Past Surgical History Past Surgical History: Reports: Orthopedic Surgery - RFA Social History Smoking Status: Current Every Day Smoker Frequency of Alcohol Use: Heavy Hx Recreational Drug Use: Yes Hx Prescription Drug Abuse: No - Advance Directive Resuscitation Status: Full Code Family History Family History: None Parental Family History Reviewed: Yes - History of hypertension. Children Family History Reviewed: Yes Sibling(s) Family History Reviewed.: Yes Medication/Allergy Allergies/Adverse Reactions: No Known Allergies Allergy (Verified 11/29/17 12:57) Review of Systems Constitutional: ABSENT: fever(s) Eyes: ABSENT: visual disturbances Ears: ABSENT: hearing changes Nose, Mouth, and Throat: ABSENT: sore throat Respiratory: ABSENT: dyspnea, hemoptysis Gastrointestinal: ABSENT: abdominal pain, dysphagia, heartburn, hematemesis, nausea, vomiting Musculoskeletal: ABSENT: joint swelling Integumentary: ABSENT: rash, wounds Neurological: PRESENT: other - Altered mental status Physical Exam Vital Signs: Temp Pulse Resp BP Pulse Ox 97.8 F 105 H 14 107/78 96 08/29/18 12:08 08/29/18 10:08 08/29/18 13:01 08/29/18 13:01 08/29/18 13:01 Intake & Output 08/28/18 08/29/18 08/30/18 06:59 06:59 06:59 Intake Total 1999 Balance 1999 Weight 92.2 kg General appearance: PRESENT: no acute distress Head exam: PRESENT: atraumatic Eye exam: PRESENT: PERRLA Ear exam: PRESENT: normal external ear exam Mouth exam: PRESENT: dry mucosa Teeth exam: PRESENT: poor dentation Neck exam: ABSENT: carotid bruit, JVD, lymphadenopathy, thyromegaly Respiratory exam: PRESENT: clear to auscultation ryan. ABSENT: rales, rhonchi, wheezes Cardiovascular exam: PRESENT: RRR. ABSENT: diastolic murmur, rubs, systolic murmur GI/Abdominal exam: PRESENT: normal bowel sounds, soft. ABSENT: distended, guarding, mass, organolmegaly, rebound, tenderness Rectal exam: PRESENT: deferred Extremities exam: PRESENT: full ROM. ABSENT: calf tenderness, clubbing, pedal edema Neurological exam: PRESENT: other - Was lethargic less responsive but opening his eyes responded well to verbal commands. Results Laboratory Results: 08/29/18 09:25 08/29/18 09:25 08/29/18 08/29/18 08/29/18 09:25 09:25 10:42 WBC 17.0 H RBC 5.08 Hgb 16.0 Hct 48.0 MCV 94 MCH 31.5 MCHC 33.3 RDW 13.0 Plt Count 267 Seg Neutrophils % 83.3 H Lymphocytes % 5.7 L Monocytes % 10.9 Eosinophils % 0.0 Basophils % 0.1 Absolute Neutrophils 14.2 H Absolute Lymphocytes 1.0 Absolute Monocytes 1.8 H Absolute Eosinophils 0.0 Absolute Basophils 0.0 Sodium 142.3 Potassium 4.9 Chloride 97 L Carbon Dioxide 22 Anion Gap 23 H BUN 20 Creatinine 2.40 H Est GFR ( Amer) 37 L Est GFR (Non-Af Amer) 31 L Glucose 132 H Calcium 9.5 Total Bilirubin 0.6 AST 153 H ALT 196 H Alkaline Phosphatase 71 Total Protein 8.7 H Albumin 5.1 H Urine Color BARBARA Urine Appearance SLIGHTLY-CLOUDY Urine pH 6.0 Ur Specific [place] 1.025 Urine Protein 100 H Urine Glucose (UA) NEGATIVE Urine Ketones 20 H Urine Blood NEGATIVE Urine Nitrite NEGATIVE Ur Leukocyte Esterase NEGATIVE Urine WBC (Auto) 2 Urine RBC (Auto) 1 Impressions: Chest X-Ray 08/29/18 10:27 IMPRESSION: NO ACUTE RADIOGRAPHIC FINDING IN THE CHEST. Assessment and Plan - Diagnosis (1) Acute renal failure (ARF) Qualifiers: Acute renal failure type: unspecified Qualified Code(s): N17.9 - Acute kidney failure, unspecified Is this a current diagnosis for this admission?: Yes Plan: 08/29/2018 patient is going to be admitted to [facility] with a diagnosis of acute renal failure we do not have the baseline creatinine available 1 L of IV fluids given in the ER to start normal saline at 125 cc/h from now. GI prophylaxis DVT prophylaxis was initiated started on Ativan 1 mg IV every 4 PRN for agitation. To watch for the DTs. Psych consult was requested. pt denies any suicidal ideation at the time of my examination. (2) Drug overdose Qualifiers: Encounter type: initial encounter Injury intent: accidental or unintentional Qualified Code(s): T50.901A - Poisoning by unspecified drugs, medicaments and biological substances, accidental (unintentional), initial encounter Is this a current diagnosis for this admission?: Yes Plan: 08/29/2018-patient admitted with drug overdose urine toxin is positive for opiates but he is admitted using heroin this morning. Placed her Ativan 1 mg IV every 4 as needed to prevent any withdrawal symptoms. (3) Hypoxia Is this a current diagnosis for this admission?: Yes Plan: 08/29/2018-with the patient is came to the emergency room he was hypoxic pulse ox is between 88-92 most likely secondary to drug overdose. Chest x-ray was negative for acute pathology. Plan to do the ABG. (4) Leukocytosis Is this a current diagnosis for this admission?: Yes Plan: 08/29/2018-patient came in with a WBC count of 17,000 hypoxic with ERMELINDA blood cultures urine cultures are requested started on IV fluids 125 cc/h and started on IV Rocephin 2 g daily. At this point there is no evidence of any source of infection leukocytosis may be reactive in nature. (5) Tobacco abuse Is this a current diagnosis for this admission?: No Plan: 08/29/2018-patient is a chronic smoker, once he is sober will provide smoking counseling. Started nicotine patch 21 mg daily. (6) Polysubstance abuse Is this a current diagnosis for this admission?: No Plan: 08/29/2018-patient has history of polysubstance abuse urine drug screen is positive for opiates and is also admitted using heroin this morning is also admitted to drinking alcohol yesterday. Alcohol level is less than 10. to Watch for the DTs. - Time Time Spent with patient: 35 or more minutes Smoking Cessation Education: over 10 minutes Medications reviewed and adjusted accordingly: Yes Anticipated discharge: Home
[2018-08-29 13:55] LABS: ARTERIAL BLOOD BASE EXCESS -4.8 mmol/L; ARTERIAL BLOOD H2CO3 1.42 mmol/L (1.05-1.35); ARTERIAL BLOOD O2 SATURATION 95.4 % (94-98); ARTERIAL BLOOD PCO2 47.3 mmHg (35-45); ARTERIAL BLOOD PH 7.29 (7.35-7.45); ARTERIAL BLOOD PO2 85.8 mmHg (80-100); ARTERIAL BLOOD TOTAL CO2 23.5 mmol/L (23-27)
[2018-08-29 13:56] LABS: ARTERIAL BLOOD FIO2 2L
[2018-08-29] MEDS: CEFTRIAXONE 2 GM/D5W RTU 2 GM/50 ML RTUPB IV SCH (14:11)
[2018-08-29] MEDS: NORMAL SALINE 1000 ML 1,000 ML IV PRN ×2 (14:12→22:21)
[2018-08-29 14:21] LABS: CREATINE KINASE MB 2.47 ng/mL (<4.55)
[2018-08-29 14:34] LABS: TROPONIN I 0.092 ng/mL
[2018-08-29 19:35] LABS: CREATINE KINASE MB 13.6 ng/mL (<4.55)
[2018-08-29 19:40] LABS: TROPONIN I 0.79 ng/mL
[2018-08-29] MEDS: FAMOTIDINE INJ/PF 20 MG/2 ML SDV IV SCH (22:21)
[2018-08-29] MEDS: ENOXAPARIN SODIUM INJ 100 MG/1 ML DISP.SYRIN SUBCUT SCH (22:21)
--- NOTE | 2018-08-29 23:59 | EKG REPORT ---
SEVERITY:- NORMAL ECG - SINUS RHYTHM : Confirmed by: Kerwin Orantes 29-Aug-2018 23:59:31
--- NOTE | 2018-08-30 | EKG REPORT ---
SEVERITY:- OTHERWISE NORMAL ECG - SINUS TACHYCARDIA ST ELEV, PROBABLE NORMAL EARLY REPOL PATTERN : Confirmed by: Kerwin Orantes 29-Aug-2018 23:59:40
[2018-08-30 01:58] LABS: CREATINE KINASE MB 12.4 ng/mL (<4.55); TROPONIN I 0.786 ng/mL
[2018-08-30 06:55] LABS: PROTHROMBIN TIME 15.2 SEC (11.4-15.4)
[2018-08-30 06:57] LABS: ABSOLUTE EOSINOPHILS # (AUTO) 0.1 10^3/uL (0.0-0.6); ABSOLUTE LYMPHOCYTES (AUTO) 2.6 10^3/uL (0.5-4.7); ABSOLUTE MONOCYTES (AUTO) 0.8 10^3/uL (0.1-1.4); ABSOLUTE NEUT (AUTO) 4.5 10^3/uL (1.7-8.2); BASOPHILS % (AUTO) 0.4 % (0-2); EOSINOPHILS % (AUTO) 1.6 % (0-6); HEMATOCRIT 37.8 % (37.9-51.0); LYMPHOCYTES % (AUTO) 32.5 % (13-45); MEAN CORPUSCULAR HEMOGLOBIN 31.1 pg (27.0-33.4); MEAN CORPUSCULAR HGB CONC 34.2 g/dL (32.0-36.0); MEAN CORPUSCULAR VOLUME 91 fl (80-97); MONOCYTES % (AUTO) 10.3 % (3-13); PLATELET COUNT 118 10^3/uL (150-450); RED BLOOD COUNT 4.16 10^6/uL (4.35-5.55); RED CELL DISTRIBUTION WIDTH 12.7 % (11.5-14.0); SEGMENTED NEUTROPHILS % (AUTO) 55.2 % (42-78); TOTAL CELLS COUNTED % (AUTO) 100 %; WHITE BLOOD COUNT 8.1 10^3/uL (4.0-10.5)
[2018-08-30 07:06] LABS: HEMOGLOBIN 12.9 g/dL (13.5-17.0)
[2018-08-30 07:12] LABS: ALBUMIN 3.3 g/dL (3.5-5.0); ALKALINE PHOSPHATASE 53 U/L (38-126); ANION GAP 6 (5-19); BILIRUBIN,DIRECT 0.2 mg/dL (0.0-0.4); BILIRUBIN,TOTAL 0.3 mg/dL (0.2-1.3); BLOOD UREA NITROGEN 14 mg/dL (7-20); CALCIUM 8.2 mg/dL (8.4-10.2); CARBON DIOXIDE 28 mmol/L (22-30); CHLORIDE 104 mmol/L (98-107); CREATINE KINASE 1236 U/L (55-170); GLUCOSE 98 mg/dL (75-110); TOTAL PROTEIN 5.8 g/dL (6.3-8.2); TRIGLYCERIDES 35 mg/dL (<150)
[2018-08-30 07:23] LABS: CREATINE KINASE MB 11.9 ng/mL (<4.55)
[2018-08-30 07:29] LABS: ALANINE AMINOTRANSFERASE 1062 U/L (21-72); ASPARTATE AMINO TRANSFERASE 911 U/L (17-59); CHOLESTEROL < 50.00 mg/dL (0-200)
[2018-08-30 07:30] LABS: DIRECT LDL < 30 mg/dL (<100); POTASSIUM 3.9 mmol/L (3.6-5.0)
[2018-08-30 07:32] LABS: TROPONIN I 0.643 ng/mL
[2018-08-30] MEDS: NORMAL SALINE 1000 ML 1,000 ML IV PRN (08:54)
[2018-08-30] MEDS: ENOXAPARIN SODIUM INJ 100 MG/1 ML DISP.SYRIN SUBCUT SCH ×2 (09:12→21:24)
[2018-08-30] MEDS: FAMOTIDINE INJ/PF 20 MG/2 ML SDV IV SCH ×2 (09:14→21:24)
[2018-08-30] MEDS: NICOTINE 21 MG/24 HR PATCH.TD24 TD SCH (09:14)
--- NOTE | 2018-08-30 09:14 | PDOC PROGRESS REPORT ---
Subjective Progress Note for:: 08/30/18 Subjective:: 38 year old male With history of heroin abuse, chronic smoker using opiates at home brought in by EMS after mom called them to notify that patient is not responding well. EMS gave him 0.4 mg of Narcan with improvement. In the emergency room another dose of Narcan was given and the patient admitted to be using heroin at home. Unable to get further information from the patient. Work-up in the ER shows creatinine of 2.4 indicating ERMELINDA with a WBC count of 17,000. Patient was hypotensive in the emergency room he was given 1 L of fluid blood pressure came up to 100/60. Medical consult was called for admission. 08/[id number]-old male admitted with altered mental status hypoxia most likely secondary to heroin use and opiates use. Alcohol level at the time of admission is less than 10 he also found to be in acute kidney failure with creatinine of 2.4 creatinine is improved to 0.8 today. He is also hypotensive at the time of admission which was resolved. Patient this morning complaining of right arm weakness/numbness and right lower leg numbness plan to do the CT head without contrast today. Patient's troponins are elevated most likely secondary to hypoxia noticed in the ER yesterday. Hypoxia is resolved now pulse ox is 94% on room air. Reason For Visit: DRUG OVERDOSE Physical Exam Vital Signs: Temp Pulse Resp BP Pulse Ox 98.8 F 76 17 114/65 94 08/30/18 07:30 08/30/18 07:30 08/30/18 07:30 08/30/18 07:30 08/30/18 07:30 Intake & Output 08/29/18 08/30/18 08/31/18 06:59 06:59 06:59 Intake Total 4530 Output Total 800 Balance 3730 Weight 95.3 kg General appearance: PRESENT: no acute distress, cooperative, well-developed Head exam: PRESENT: atraumatic Eye exam: PRESENT: PERRLA Mouth exam: PRESENT: moist, tongue midline Teeth exam: PRESENT: poor dentation Neck exam: ABSENT: carotid bruit, JVD, lymphadenopathy, thyromegaly Respiratory exam: PRESENT: clear to auscultation ryan. ABSENT: rales, rhonchi, wheezes Cardiovascular exam: PRESENT: RRR. ABSENT: diastolic murmur, rubs, systolic murmur GI/Abdominal exam: PRESENT: normal bowel sounds, soft. ABSENT: distended, guarding, mass, organolmegaly, rebound, tenderness Rectal exam: PRESENT: deferred Extremities exam: PRESENT: full ROM. ABSENT: calf tenderness, clubbing, pedal edema Neurological exam: PRESENT: alert, awake, oriented to person, oriented to place, oriented to time, oriented to situation, CN II-XII grossly intact. ABSENT: motor sensory deficit Psychiatric exam: PRESENT: appropriate affect, normal mood. ABSENT: homicidal ideation, suicidal ideation Results Laboratory Results: 08/30/18 06:13 08/30/18 06:13 08/29/18 08/29/18 08/29/18 09:25 09:25 10:42 WBC 17.0 H RBC 5.08 Hgb 16.0 Hct 48.0 MCV 94 MCH 31.5 MCHC 33.3 RDW 13.0 Plt Count 267 Seg Neutrophils % 83.3 H Lymphocytes % 5.7 L Monocytes % 10.9 Eosinophils % 0.0 Basophils % 0.1 Absolute Neutrophils 14.2 H Absolute Lymphocytes 1.0 Absolute Monocytes 1.8 H Absolute Eosinophils 0.0 Absolute Basophils 0.0 Carbonic Acid HCO3/H2CO3 Ratio ABG pH ABG pCO2 ABG pO2 ABG HCO3 ABG O2 Saturation ABG Base Excess FiO2 Sodium 142.3 Potassium 4.9 Chloride 97 L Carbon Dioxide 22 Anion Gap 23 H BUN 20 Creatinine 2.40 H Est GFR ( Amer) 37 L Est GFR (Non-Af Amer) 31 L Glucose 132 H Calcium 9.5 Total Bilirubin 0.6 AST 153 H ALT 196 H Alkaline Phosphatase 71 Total Protein 8.7 H Albumin 5.1 H Triglycerides Cholesterol LDL Cholesterol Direct VLDL Cholesterol HDL Cholesterol TSH Urine Color BARBARA Urine Appearance SLIGHTLY-CLOUDY Urine pH 6.0 Ur Specific [place] 1.025 Urine Protein 100 H Urine Glucose (UA) NEGATIVE Urine Ketones 20 H Urine Blood NEGATIVE Urine Nitrite NEGATIVE Ur Leukocyte Esterase NEGATIVE Urine WBC (Auto) 2 Urine RBC (Auto) 1 08/29/18 08/30/18 08/30/18 13:38 06:13 06:13 WBC 8.1 RBC 4.16 L Hgb 12.9 L D Hct 37.8 L MCV 91 MCH 31.1 MCHC 34.2 RDW 12.7 Plt Count 118 L Seg Neutrophils % 55.2 Lymphocytes % 32.5 Monocytes % 10.3 Eosinophils % 1.6 Basophils % 0.4 Absolute Neutrophils 4.5 Absolute Lymphocytes 2.6 Absolute Monocytes 0.8 Absolute Eosinophils 0.1 Absolute Basophils 0.0 Carbonic Acid 1.42 H HCO3/H2CO3 Ratio 15:1 ABG pH 7.29 L ABG pCO2 47.3 H ABG pO2 85.8 ABG HCO3 22.0 ABG O2 Saturation 95.4 ABG Base Excess -4.8 FiO2 2L Sodium 137.9 Potassium 3.9 D Chloride 104 Carbon Dioxide 28 Anion Gap 6 BUN 14 Creatinine 0.80 Est GFR ( Amer) > 60 Est GFR (Non-Af Amer) > 60 Glucose 98 Calcium 8.2 L Total Bilirubin 0.3 AST 911 H ALT 1062 H Alkaline Phosphatase 53 Total Protein 5.8 L Albumin 3.3 L Triglycerides 35 Cholesterol < 50.00 LDL Cholesterol Direct < 30 VLDL Cholesterol 7.0 L HDL Cholesterol 20 L TSH Urine Color Urine Appearance Urine pH Ur Specific [place]alia Urine Protein Urine Glucose (UA) Urine Ketones Urine Blood Urine Nitrite Ur Leukocyte Esterase Urine WBC (Auto) Urine RBC (Auto) 08/30/18 06:13 WBC RBC Hgb Hct MCV MCH MCHC RDW Plt Count Seg Neutrophils % Lymphocytes % Monocytes % Eosinophils % Basophils % Absolute Neutrophils Absolute Lymphocytes Absolute Monocytes Absolute Eosinophils Absolute Basophils Carbonic Acid HCO3/H2CO3 Ratio ABG pH ABG pCO2 ABG pO2 ABG HCO3 ABG O2 Saturation ABG Base Excess FiO2 Sodium Potassium Chloride Carbon Dioxide Anion Gap BUN Creatinine Est GFR ( Amer) Est GFR (Non-Af Amer) Glucose Calcium Total Bilirubin AST ALT Alkaline Phosphatase Total Protein Albumin Triglycerides Cholesterol LDL Cholesterol Direct VLDL Cholesterol HDL Cholesterol TSH 0.32 L Urine Color Urine Appearance Urine pH Ur Specific [place]alia Urine Protein Urine Glucose (UA) Urine Ketones Urine Blood Urine Nitrite Ur Leukocyte Esterase Urine WBC (Auto) Urine RBC (Auto) 08/29/18 08/29/18 08/29/18 09:25 09:25 18:46 Creatine Kinase 171 H 1084 H CK-MB (CK-2) 2.47 Troponin I 0.092 NT-Pro-B Natriuret Pep 08/29/18 08/30/18 08/30/18 18:46 00:35 00:35 Creatine Kinase 1413 H CK-MB (CK-2) 13.60 H 12.40 H Troponin I 0.790 0.786 NT-Pro-B Natriuret Pep 08/30/18 08/30/18 06:13 06:13 Creatine Kinase 1236 H CK-MB (CK-2) 11.90 H Troponin I 0.643 NT-Pro-B Natriuret Pep 1310 H Impressions: Chest X-Ray 08/29/18 10:27 IMPRESSION: NO ACUTE RADIOGRAPHIC FINDING IN THE CHEST. Assessment and Plan - Diagnosis (1) Acute renal failure (ARF) Qualifiers: Acute renal failure type: unspecified Qualified Code(s): N17.9 - Acute kidney failure, unspecified Is this a current diagnosis for this admission?: Yes Plan: 08/29/2018 patient is going to be admitted to [facility] with a diagnosis of acute renal failure we do not have the baseline creatinine available 1 L of IV fluids given in the ER to start normal saline at 125 cc/h from now. GI prophylaxis DVT prophylaxis was initiated started on Ativan 1 mg IV every 4 PRN for agitation. To watch for the DTs. Psych consult was requested. pt denies any suicidal ideation at the time of my examination. 08/30/[id number]-old male admitted for acute renal failure and drug overdose. Admission creatinine is 2.4 it is improved to 0.8 today. Plan is to decrease t he IV fluids to 75 cc/h today. ERMELINDA most likely secondary to poor oral intake. (2) Drug overdose Qualifiers: Encounter type: initial encounter Injury intent: accidental or unintentional Qualified Code(s): T50.901A - Poisoning by unspecified drugs, medicaments and biological substances, accidental (unintentional), initial encounter Is this a current diagnosis for this admission?: Yes Plan: 08/29/2018-patient admitted with drug overdose urine toxin is positive for opiates but he is admitted using heroin this morning. Placed her Ativan 1 mg IV every 4 as needed to prevent any withdrawal symptoms. 08/30/2018-urine drug screen is positive for opiates and patient admitted using heroin denies any suicidal homicidal ideation. Presently on IV Ativan 1 mg every 4 as needed to prevent any withdrawal symptoms psych consult was requested. (3) Hypoxia Is this a current diagnosis for this admission?: Yes Plan: 08/29/2018-with the patient is came to the emergency room he was hypoxic pulse ox is between 88-92 most likely secondary to drug overdose. Chest x-ray was negative for acute pathology. Plan to do the ABG. 08/30/2018-patient came in with hypoxia to the ER yesterday most likely secondary to drug overdose pulse ox is 94% on room air hypoxia is resolved. (4) Leukocytosis Is this a current diagnosis for this admission?: Yes Plan: 08/29/2018-patient came in with a WBC count of 17,000 hypoxic with ERMELINDA blood cultures urine cultures are requested started on IV fluids 125 cc/h and started on IV Rocephin 2 g daily. At this point there is no evidence of any source of infection leukocytosis may be reactive in nature. 08/30/2018-patient came in with a WBC count of 17,000 and it was improved to 8100 today presently on IV Rocephin. Most likely reactive leukocytosis. (5) Tobacco abuse Is this a current diagnosis for this admission?: No (6) Polysubstance abuse Is this a current diagnosis for this admission?: No - Time Time Spent with patient: 25-34 minutes Smoking Cessation Education: over 10 minutes Medications reviewed and adjusted accordingly: Yes Anticipated discharge: Home
[2018-08-30] MEDS ORDERED: ENOXAPARIN SODIUM INJ 40 MG/0.4 ML DISP.SYRIN SUBCUT SCH (10:00)
--- NOTE | 2018-08-30 11:59 | RADIOLOGY REPORT (SQ) ---
EXAM DESCRIPTION: CT HEAD WITHOUT COMPLETED DATE/TIME: 08/30/2018 11:19 am REASON FOR STUDY: rt lower leg numbness COMPARISON: 08/12/2008 TECHNIQUE: Axial images acquired through the brain without intravenous contrast. Images reviewed wi th bone, brain and subdural windows. Additional sagittal and coronal reconstructions were generated. Images stored on PACS. All CT scanners at this facility use dose modulation, iterative reconstruction, and/or weight based d osing when appropriate to reduce radiation dose to as low as reasonably achievable (ALARA). [facility]: Dose Right [facility]: CareDose [facility]: Dose Right [facility]: Teradose 4D [facility]: Smart Spinal Modulation RADIATION DOSE: CT Rad equipment meets quality standard of care and radiation dose reduction techniq ues were employed. CTDIvol: 48.6 mGy. DLP: 954 mGy-cm. mGy. LIMITATIONS: None. FINDINGS: VENTRICLES: Normal size and contour. CEREBRUM: There is a small area of decreased attenuation in the region of the genu of the internal ca psule on the right. Normal simeon/white matter differentiation. No areas of low density in the white ma tter. CEREBELLUM: No masses. No hemorrhage. No alteration of density. No evidence for acute infarction. EXTRAAXIAL SPACES: No fluid collections. No masses. ORBITS AND GLOBE: No intra- or extraconal masses. Normal contour of globe without masses. CALVARIUM: No fracture. PARANASAL SINUSES: Mucoperiosteal changes in the right maxillary sinus. SOFT TISSUES: No mass or hematoma. OTHER: No other significant finding. IMPRESSION: Likely lacunar infarct in the region of the genu of the internal capsule on the right, a ge uncertain. Consider MRI for further evaluation. Sinus disease. COMMENT: Quality ID # [id number]: Final reports with documentation of one or more dose reduction techniques (e.g., Automated exposure control, adjustment of the mA and/or kV according to patient size, use of iterative reconstruction technique) TECHNICAL DOCUMENTATION: JOB ID: [id number]- All Rights Reserved Reading location - IP/workstation name: [email or web address]
[2018-08-30] MEDS: CEFTRIAXONE 2 GM/D5W RTU 2 GM/50 ML RTUPB IV SCH (12:38)
[2018-08-30 13:57] LABS: CREATINE KINASE MB 8.93 ng/mL (<4.55); TROPONIN I 0.482 ng/mL
[2018-08-31 06:46] LABS: ABSOLUTE EOSINOPHILS # (AUTO) 0.3 10^3/uL (0.0-0.6); ABSOLUTE LYMPHOCYTES (AUTO) 1.7 10^3/uL (0.5-4.7); ABSOLUTE MONOCYTES (AUTO) 0.8 10^3/uL (0.1-1.4); ABSOLUTE NEUT (AUTO) 3.7 10^3/uL (1.7-8.2); BASOPHILS % (AUTO) 0.4 % (0-2); EOSINOPHILS % (AUTO) 5.2 % (0-6); HEMATOCRIT 37.3 % (37.9-51.0); LYMPHOCYTES % (AUTO) 25.5 % (13-45); MEAN CORPUSCULAR HEMOGLOBIN 31.5 pg (27.0-33.4); MEAN CORPUSCULAR HGB CONC 34.8 g/dL (32.0-36.0); MEAN CORPUSCULAR VOLUME 91 fl (80-97); MONOCYTES % (AUTO) 12.3 % (3-13); PLATELET COUNT 107 10^3/uL (150-450); RED BLOOD COUNT 4.12 10^6/uL (4.35-5.55); SEGMENTED NEUTROPHILS % (AUTO) 56.6 % (42-78); TOTAL CELLS COUNTED % (AUTO) 100 %; WHITE BLOOD COUNT 6.6 10^3/uL (4.0-10.5)
[2018-08-31 07:20] LABS: ALBUMIN 3.1 g/dL (3.5-5.0); ALKALINE PHOSPHATASE 49 U/L (38-126); ANION GAP 5 (5-19); ASPARTATE AMINO TRANSFERASE 685 U/L (17-59); BILIRUBIN,DIRECT 0.2 mg/dL (0.0-0.4); BILIRUBIN,TOTAL 0.6 mg/dL (0.2-1.3); BLOOD UREA NITROGEN 10 mg/dL (7-20); CALCIUM 8.4 mg/dL (8.4-10.2); CARBON DIOXIDE 27 mmol/L (22-30); CHLORIDE 108 mmol/L (98-107); GLUCOSE 93 mg/dL (75-110); TOTAL PROTEIN 5.7 g/dL (6.3-8.2)
[2018-08-31 07:32] LABS: ALANINE AMINOTRANSFERASE 1130 U/L (21-72)
--- NOTE | 2018-08-31 09:01 | PDOC PROGRESS REPORT ---
Subjective Progress Note for:: 08/31/18 Subjective:: 38 year old male With history of heroin abuse, chronic smoker using opiates at home brought in by EMS after mom called them to notify that patient is not responding well. EMS gave him 0.4 mg of Narcan with improvement. In the emergency room another dose of Narcan was given and the patient admitted to be using heroin at home. Unable to get further information from the patient. Work-up in the ER shows creatinine of 2.4 indicating ERMELINDA with a WBC count of 17,000. Patient was hypotensive in the emergency room he was given 1 L of fluid blood pressure came up to 100/60. Medical consult was called for admission. 08/30/[id number]-isul-old male admitted with altered mental status hypoxia most likely secondary to heroin use and opiates use. Alcohol level at the time of admission is less than 10 he also found to be in acute kidney failure with creatinine of 2.4 creatinine is improved to 0.8 today. He is also hypotensive at the time of admission which was resolved. Patient this morning complaining of right arm weakness/numbness and lt lower leg numbness plan to do the CT head without contrast today. Patient's troponins are elevated most likely secondary to hypoxia noticed in the ER yesterday. Hypoxia is resolved now pulse ox is 94% on room air. 08/31/[id number]-omvh-old male admitted with drug overdose. Blood cultures came back positive for bacillus. Presently on IV Rocephin. Afebrile. WBC count came back to normal. CT head was done yesterday because patient is complaining of lt lower leg numbness and it shows small lacunar infarct. Radiologist recommendation is to do the MRI of the brain. Reason For Visit: DRUG OVERDOSE Physical Exam Vital Signs: Temp Pulse Resp BP Pulse Ox 98.0 F 53 L 16 104/72 95 08/31/18 03:25 08/31/18 07:00 08/31/18 03:25 08/31/18 03:25 08/31/18 03:25 Intake & Output 08/30/18 08/31/18 09/01/18 06:59 06:59 06:59 Intake Total 4530 1290 Output Total 800 900 Balance 3730 390 Weight 95.3 kg 94.8 kg General appearance: PRESENT: no acute distress, cooperative Head exam: PRESENT: atraumatic Eye exam: PRESENT: PERRLA Mouth exam: PRESENT: moist, tongue midline Teeth exam: PRESENT: poor dentation Neck exam: ABSENT: carotid bruit, JVD, lymphadenopathy, thyromegaly Respiratory exam: PRESENT: decreased breath sounds Cardiovascular exam: PRESENT: RRR. ABSENT: diastolic murmur, rubs, systolic murmur GI/Abdominal exam: PRESENT: normal bowel sounds, soft. ABSENT: distended, guarding, mass, organolmegaly, rebound, tenderness Rectal exam: PRESENT: deferred Neurological exam: PRESENT: alert, awake, oriented to person, oriented to place, oriented to time, oriented to situation, CN II-XII grossly intact. ABSENT: motor sensory deficit Psychiatric exam: PRESENT: appropriate affect, normal mood. ABSENT: homicidal ideation, suicidal ideation Results Laboratory Results: 08/31/18 06:09 08/31/18 06:09 08/31/18 08/31/18 06:09 06:09 WBC 6.6 RBC 4.12 L Hgb 13.0 L Hct 37.3 L MCV 91 MCH 31.5 MCHC 34.8 RDW 13.0 Plt Count 107 L Seg Neutrophils % 56.6 Lymphocytes % 25.5 Monocytes % 12.3 Eosinophils % 5.2 Basophils % 0.4 Absolute Neutrophils 3.7 Absolute Lymphocytes 1.7 Absolute Monocytes 0.8 Absolute Eosinophils 0.3 Absolute Basophils 0.0 Sodium 140.1 Potassium 4.0 Chloride 108 H Carbon Dioxide 27 Anion Gap 5 BUN 10 Creatinine 0.68 Est GFR ( Amer) > 60 Est GFR (Non-Af Amer) > 60 Glucose 93 Calcium 8.4 Magnesium 1.9 Total Bilirubin 0.6 AST 685 H ALT 1130 H Alkaline Phosphatase 49 Total Protein 5.7 L Albumin 3.1 L 08/29/18 10:42 Clean Catch Midstream Urine Culture - Final NO GROWTH 2 DAYS 08/29/18 08/29/18 08/29/18 09:25 09:25 18:46 Creatine Kinase 171 H 1084 H CK-MB (CK-2) 2.47 Troponin I 0.092 NT-Pro-B Natriuret Pep 08/29/18 08/30/18 08/30/18 18:46 00:35 00:35 Creatine Kinase 1413 H CK-MB (CK-2) 13.60 H 12.40 H Troponin I 0.790 0.786 NT-Pro-B Natriuret Pep 08/30/18 08/30/18 08/30/18 06:13 06:13 12:55 Creatine Kinase 1236 H 1264 H CK-MB (CK-2) 11.90 H Troponin I 0.643 NT-Pro-B Natriuret Pep 1310 H 08/30/18 12:55 Creatine Kinase CK-MB (CK-2) 8.93 H Troponin I 0.482 NT-Pro-B Natriuret Pep Impressions: Chest X-Ray 08/29/18 10:27 IMPRESSION: NO ACUTE RADIOGRAPHIC FINDING IN THE CHEST. Head CT 08/30/18 00:00 IMPRESSION: Likely lacunar infarct in the region of the genu of the internal capsule on the right, age uncertain. Consider MRI for further evaluation. Sinus disease. Assessment and Plan - Diagnosis (1) Acute renal failure (ARF) Qualifiers: Acute renal failure type: unspecified Qualified Code(s): N17.9 - Acute kidney failure, unspecified Is this a current diagnosis for this admission?: Yes Plan: 08/29/2018 patient is going to be admitted to [facility] with a diagnosis of acute renal failure we do not have the baseline creatinine available 1 L of IV fluids given in the ER to start normal saline at 125 cc/h from now. GI prophylaxis DVT prophylaxis was initiated started on Ativan 1 mg IV every 4 PRN for agitation. To watch for the DTs. Psych consult was requested. pt denies any suicidal ideation at the time of my examination. 08/30/[id number]-gwjm-old male admitted for acute renal failure and drug overdose. Admission creatinine is 2.4 it is improved to 0.8 today. Plan is to decrease the IV fluids to 75 cc/h today. ERMELINDA most likely secondary to poor oral intake. 08/31/2018-patient came in with acute renal failure with creatinine of 2.4 creatinine today is 0.68. Kidney injury resolved. (2) Drug overdose Qualifiers: Encounter type: initial encounter Injury intent: accidental or unintentional Qualified Code(s): T50.901A - Poisoning by unspecified drugs, medicaments and biological substances, accidental (unintentional), initial encounter Is this a current diagnosis for this admission?: Yes Plan: 08/29/2018-patient admitted with drug overdose urine toxin is positive for opiates but he is admitted using heroin this morning. Placed her Ativan 1 mg IV every 4 as needed to prevent any withdrawal symptoms. 08/30/2018-urine drug screen is positive for opiates and patient admitted using heroin denies any suicidal homicidal ideation. Presently on IV Ativan 1 mg every 4 as needed to prevent any withdrawal symptoms psych consult was requested. 03/03/2018-at the time of admission urine drug screen is positive for opiates and the patient admitted to using heroin prior to ER visit. Presently on IV Ativan 1 mg every 4 hours PRN for agitation plan is to continue the present management. psych consult was requested. (3) Hypoxia Is this a current diagnosis for this admission?: Yes Plan: 08/29/2018-with the patient is came to the emergency room he was hypoxic pulse ox is between 88-92 most likely secondary to drug overdose. Chest x-ray was negative for acute pathology. Plan to do the ABG. 08/30/2018-patient came in with hypoxia to the ER yesterday most likely secondary to drug overdose pulse ox is 94% on room air hypoxia is resolved. 08/31/[id number]-zewp-old male came in with hypoxia in the emergency room pulse oxes are in between 88 to 92%. Started on IV Rocephin. Pulse ox today is 94% room air. Blood cultures came back positive for bacillus species. Probably might have underlying sepsis. He is also has ERMELINDA. WBC count was elevated at the time of admission came down to 6.6 today. Presently on IV Rocephin plan is to continue the present management. (4) Leukocytosis Is this a current diagnosis for this admission?: Yes Plan: 08/29/2018-patient came in with a WBC count of 17,000 hypoxic with ERMELINDA blood cultures urine cultures are requested started on IV fluids 125 cc/h and started on IV Rocephin 2 g daily. At this point there is no evidence of any source of infection leukocytosis may be reactive in nature. 08/30/2018-patient came in with a WBC count of 17,000 and it was improved to 8100 today presently on IV Rocephin. Most likely reactive leukocytosis. 08/31/2018-patient came in with a WBC count of 17,000 improved to 6600 today. leukocytosis most likely secondary to sepsis. (5) Tobacco abuse Is this a current diagnosis for this admission?: No (6) Polysubstance abuse Is this a current diagnosis for this admission?: No (8) CVA (cerebral vascular accident) Qualifiers: Laterality of affected vessel: right Is this a current diagnosis for this admission?: Yes Plan: 08/31/2018-during the examination yesterday patient is complaining of left lower leg numbness CT head was done found to have small lacunar infarct in the right hemisphere. Plan is to do the MRI of the brain today. - Time Time Spent with patient: 25-34 minutes Medications reviewed and adjusted accordingly: Yes Anticipated discharge: Home
[2018-08-31] MEDS: NICOTINE 21 MG/24 HR PATCH.TD24 TD SCH (09:50)
[2018-08-31] MEDS: ASPIRIN 325 MG TABLET PO SCH (09:50)
[2018-08-31] MEDS: FAMOTIDINE INJ/PF 20 MG/2 ML SDV IV SCH ×2 (09:50→21:34)
[2018-08-31] MEDS: ENOXAPARIN SODIUM INJ 100 MG/1 ML DISP.SYRIN SUBCUT SCH ×2 (10:08→21:29)
--- NOTE | 2018-08-31 11:50 | RADIOLOGY REPORT (SQ) ---
EXAM DESCRIPTION: MRI HEAD WITHOUT COMPLETED DATE/TIME: 08/31/2018 10:25 am REASON FOR STUDY: lacunar infarct COMPARISON: CT brain dated 08/30/2018 TECHNIQUE: Multiplanar imaging includes non-contrasted T1, T2, FLAIR, and diffusion with ADC map seq uences. Images stored on PACS. LIMITATIONS: None. FINDINGS: ANATOMY: No anomalies. Normal vascular flow voids. Pituitary fossa normal. CSF SPACES: Normal in size and contour. No hemorrhage. CEREBRUM: Sulci and gyri normal in size and contour. Normal white matter signal on FLAIR imaging. No evidence of hemorrhage, mass, or extraaxial fluid collection. POSTERIOR FOSSA: No signal alteration. No hemorrhage. No edema, masses or mass effect. Internal zaki tory canals, cerebello-pontine angles, mastoids normal. DIFFUSION IMAGING: There are acute infarcts in the globus pallidus bilaterally. Right greater than l eft. ORBITS: No masses. Globes normal. PARANASAL SINUSES: No fluid levels. Mucosa normal. OTHER: No other significant finding. IMPRESSION: Acute bilateral globus pallidus infarcts. EVIDENCE OF ACUTE STROKE: YES. TECHNICAL DOCUMENTATION: JOB ID: [id number] [employer]- All Rights Reserved Reading location - IP/workstation name: [email or web address]
[2018-08-31] MEDS: CEFTRIAXONE 2 GM/D5W RTU 2 GM/50 ML RTUPB IV SCH (12:04)
[2018-08-31] MEDS: NORMAL SALINE 1000 ML 1,000 ML IV PRN (15:07)
[2018-08-31] MEDS ORDERED: SIMVASTATIN 10 MG TABLET PO SCH (22:00)
[2018-09-01] MEDS: NORMAL SALINE 1000 ML 1,000 ML IV PRN (05:47)
[2018-09-01 08:25] LABS: ABSOLUTE BASOPHILS # (AUTO) 0.1 10^3/uL (0.0-0.2); ABSOLUTE EOSINOPHILS # (AUTO) 0.6 10^3/uL (0.0-0.6); ABSOLUTE LYMPHOCYTES (AUTO) 2.1 10^3/uL (0.5-4.7); ABSOLUTE MONOCYTES (AUTO) 0.7 10^3/uL (0.1-1.4); ABSOLUTE NEUT (AUTO) 2.7 10^3/uL (1.7-8.2); BASOPHILS % (AUTO) 0.9 % (0-2); EOSINOPHILS % (AUTO) 10.3 % (0-6); HEMATOCRIT 35.7 % (37.9-51.0); HEMOGLOBIN 12.8 g/dL (13.5-17.0); LYMPHOCYTES % (AUTO) 33.9 % (13-45); MEAN CORPUSCULAR HGB CONC 35.8 g/dL (32.0-36.0); MEAN CORPUSCULAR VOLUME 89 fl (80-97); MONOCYTES % (AUTO) 11.2 % (3-13); PLATELET COUNT 106 10^3/uL (150-450); RED BLOOD COUNT 3.99 10^6/uL (4.35-5.55); RED CELL DISTRIBUTION WIDTH 12.6 % (11.5-14.0); SEGMENTED NEUTROPHILS % (AUTO) 43.7 % (42-78); TOTAL CELLS COUNTED % (AUTO) 100 %; WHITE BLOOD COUNT 6.2 10^3/uL (4.0-10.5)
[2018-09-01 08:43] LABS: ALANINE AMINOTRANSFERASE 813 U/L (21-72); ALBUMIN 3.1 g/dL (3.5-5.0); ALKALINE PHOSPHATASE 44 U/L (38-126); ASPARTATE AMINO TRANSFERASE 254 U/L (17-59); BILIRUBIN,DIRECT 0.1 mg/dL (0.0-0.4); BILIRUBIN,TOTAL 0.8 mg/dL (0.2-1.3); BLOOD UREA NITROGEN 10 mg/dL (7-20); CALCIUM 8.3 mg/dL (8.4-10.2); GLUCOSE 91 mg/dL (75-110); TOTAL PROTEIN 5.8 g/dL (6.3-8.2)
[2018-09-01 08:48] LABS: ANION GAP 6 (5-19); CARBON DIOXIDE 24 mmol/L (22-30); CHLORIDE 110 mmol/L (98-107)
[2018-09-01] MEDS: ENOXAPARIN SODIUM INJ 100 MG/1 ML DISP.SYRIN SUBCUT SCH (09:03)
[2018-09-01] MEDS: NICOTINE 21 MG/24 HR PATCH.TD24 TD SCH (09:08)
[2018-09-01] MEDS: ASPIRIN 325 MG TABLET PO SCH (09:08)
[2018-09-01] MEDS: FAMOTIDINE INJ/PF 20 MG/2 ML SDV IV SCH (09:09)
[2018-09-01] MEDS: CEFTRIAXONE 2 GM/D5W RTU 2 GM/50 ML RTUPB IV SCH (11:25)
--- NOTE | 2018-09-01 11:31 | PDOC DISCHARGE SUMMARY ---
General - Admit/Disc Date/PCP Admission Date/Primary Care Provider: 08/29/18 13:11 Discharge Date: 09/01/18 - Discharge Diagnosis (1) Acute renal failure (ARF) Is this a current diagnosis for this admission?: Yes Summary: 08/29/2018 patient is going to be admitted to [facility] with a diagnosis of acute renal failure we do not have the baseline creatinine available 1 L of IV fluids given in the ER to start normal saline at 125 cc/h from now. GI prophylaxis DVT prophylaxis was initiated started on Ativan 1 mg IV every 4 PRN for agitation. To watch for the DTs. Psych consult was requested. pt denies any suicidal ideation at the time of my examination. 08/30/[id number]-jqzk-old male admitted for acute renal failure and drug overdose. Admission creatinine is 2.4 it is improved to 0.8 today. Plan is to decrease the IV fluids to 75 cc/h today. ERMELINDA most likely secondary to poor oral intake. 08/31/2018-patient came in with acute renal failure with creatinine of 2.4 creatinine today is 0.68. Kidney injury resolved. 09/01/2018-patient came in with acute renal failure most likely due to prerenal causes serum creatinine today is 0.64 ERMELINDA resolved. (2) Drug overdose Is this a current diagnosis for this admission?: Yes Summary: 08/29/2018-patient admitted with drug overdose urine toxin is positive for opiates but he is admitted using heroin this morning. Placed her Ativan 1 mg IV every 4 as needed to prevent any withdrawal symptoms. 08/30/2018-urine drug screen is positive for opiates and patient admitted using heroin denies any suicidal homicidal ideation. Presently on IV Ativan 1 mg every 4 as needed to prevent any withdrawal symptoms psych consult was requested. 08/31/2018-at the time of admission urine drug screen is positive for opiates and the patient admitted to using heroin prior to ER visit. Presently on IV Ativan 1 mg every 4 hours PRN for agitation plan is to continue the present management. psych consult was requested. 09/01 [id number]-old male admitted with drug overdose and urine drug screen is positive for opiates also admitted to using heroin. Psych consult was requested during the hospital stay. Treated with IV Ativan as needed no complications during the hospital stay. (3) Hypoxia Is this a current diagnosis for this admission?: Yes Summary: 08/29/2018-with the patient is came to the emergency room he was hypoxic pulse ox is between 88-92 most likely secondary to drug overdose. Chest x-ray was negative for acute pathology. Plan to do the ABG. 08/30/2018-patient came in with hypoxia to the ER yesterday most likely secondary to drug overdose pulse ox is 94% on room air hypoxia is resolved. 08/31/[id number]-uzxd-old male came in with hypoxia in the emergency room pulse oxes are in between 88 to 92%. Started on IV Rocephin. Pulse ox today is 94% room air. Blood cultures came back positive for bacillus species. Probably might have underlying sepsis. He is also has ERMELINDA. WBC count was elevated at the time of admission came down to 6.6 today. Presently on IV Rocephin plan is to continue the present management. 09/01/2018-patient came in with hypoxia pulse ox is 88 to 92% on room air in the emergency room. Hypoxia most likely secondary to underlying sepsis. Blood cultures came back positive for bacillus, he was also admitted with ERMELINDA and elevated WBC count. Going home on levofloxacin 500 mg p.o. daily for 1 week. (4) Leukocytosis Is this a current diagnosis for this admission?: Yes Summary: 08/29/2018-patient came in with a WBC count of 17,000 hypoxic with ERMELINDA blood cultures urine cultures are requested started on IV fluids 125 cc/h and started on IV Rocephin 2 g daily. At this point there is no evidence of any source of infection leukocytosis may be reactive in nature. 08/30/2018-patient came in with a WBC count of 17,000 and it was improved to 8100 today presently on IV Rocephin. Most likely reactive leukocytosis. 08/31/2018-patient came in with a WBC count of 17,000 improved to 6600 today. leukocytosis most likely secondary to sepsis. 09/01/2018-patient WBC count today is 6400 leukocytosis most likely secondary to sepsis resolving. Patient is going home on levo floxacillin 500 mg p.o. daily for 1 week. (5) Tobacco abuse Is this a current diagnosis for this admission?: No (6) Polysubstance abuse Is this a current diagnosis for this admission?: No (7) CVA (cerebral vascular accident) Is this a current diagnosis for this admission?: Yes (8) CVA (cerebral vascular accident) Is this a current diagnosis for this admission?: Yes Summary: 08/31/2018-during the examination yesterday patient is complaining of left lower leg numbness CT head was done found to have small lacunar infarct in the right hemisphere. Plan is to do the MRI of the brain today. 09/01/[id number]-gquk-old male admitted with heroin abuse found to have CVA on MRI. Mild lacunar infarct. Stroke core measures implemented during the hospital stay is going home on aspirin, Plavix, cholesterol medication. Patient is strongly advised to follow-up with primary care physician in 1 week. PT OT consult was done during this hospital stay. In my opinion patient does not need any physical therapy. - Additional Information Resuscitation Status: Full Code Discharge Diet: Cardiac Discharge Activity: Activity As Tolerated Prescriptions: Aspirin [Aspirin 325 mg Tablet] 325 mg PO DAILY #30 tablet Levofloxacin [Levaquin 500 mg Tablet] 500 mg PO DAILY #10 tablet Simvastatin [Zocor 10 mg Tablet] 20 mg PO QHS #30 tablet Home Medications: Aspirin [Aspirin 325 mg Tablet] 325 mg PO DAILY #30 tablet 09/01/18 Levofloxacin [Levaquin 500 mg Tablet] 500 mg PO DAILY #10 tablet 09/01/18 Simvastatin [Zocor 10 mg Tablet] 20 mg PO QHS #30 tablet 09/01/18 History of Present Illness History of Present Illness: HUBER OWEN is a 38 year old male With history of heroin abuse, chronic smoker using opiates at home brought in by EMS after mom called them to notify that patient is not responding well. EMS gave him 0.4 mg of Narcan with improvement. In the emergency room another dose of Narcan was given and the patient admitted to be using heroin at home. Unable to get further information from the patient. Work-up in the ER shows creatinine of 2.4 indicating ERMELINDA with a WBC count of 17,000. Patient was hypotensive in the emergency room he was given 1 L of fluid blood pressure came up to 100/60. Medical consult was called for admission. Hospital Course Hospital Course: 38 year old male With history of heroin abuse, chronic smoker using opiates at home brought in by EMS after mom called them to notify that patient is not responding well. EMS gave him 0.4 mg of Narcan with improvement. In the emergency room another dose of Narcan was given and the patient admitted to be using heroin at home. Unable to get further information from the patient. Work-up in the ER shows creatinine of 2.4 indicating ERMELINDA with a WBC count of 17,000. Patient was hypotensive in the emergency room he was given 1 L of fluid blood pressure came up to 100/60. Medical consult was called for admission. 08/30/[id number]-fzzz-old male admitted with altered mental status hypoxia most likely secondary to heroin use and opiates use. Alcohol level at the time of admission is less than 10 he also found to be in acute kidney failure with creatinine of 2.4 creatinine is improved to 0.8 today. He is also hypotensive at the time of admission which was resolved. Patient this morning complaining of right arm weakness/numbness and lt lower leg numbness plan to do the CT head without contrast today. Patient's troponins are elevated most likely secondary to hypoxia noticed in the ER yesterday. Hypoxia is resolved now pulse ox is 94% on room air. 08/31/[id number]-ciog-old male admitted with drug overdose. Blood cultures came back positive for bacillus. Presently on IV Rocephin. Afebrile. WBC count came back to normal. CT head was done yesterday because patient is complaining of lt lower leg numbness and it shows small lacunar infarct. Radiologist recommendation is to do the MRI of the brain. Physical Exam Vital Signs: Temp Pulse Resp BP Pulse Ox 97.6 F 55 L 16 120/80 100 09/01/18 08:49 09/01/18 08:49 09/01/18 08:49 09/01/18 08:49 09/01/18 08:49 Intake & Output 08/31/18 09/01/18 09/02/18 06:59 06:59 06:59 Intake Total 1290 2750 Output Total 900 1325 Balance 390 1425 Weight 94.8 kg 97.4 kg General appearance: PRESENT: no acute distress Head exam: PRESENT: atraumatic Eye exam: PRESENT: PERRLA Mouth exam: PRESENT: dry mucosa Teeth exam: PRESENT: poor dentation Neck exam: ABSENT: carotid bruit, JVD, lymphadenopathy, thyromegaly Respiratory exam: PRESENT: clear to auscultation ryan. ABSENT: rales, rhonchi, wheezes Cardiovascular exam: PRESENT: RRR. ABSENT: diastolic murmur, rubs, systolic murmur GI/Abdominal exam: PRESENT: normal bowel sounds, soft. ABSENT: distended, guarding, mass, organolmegaly, rebound, tenderness Rectal exam: PRESENT: deferred Extremities exam: PRESENT: full ROM. ABSENT: calf tenderness, clubbing, pedal edema Neurological exam: PRESENT: alert, awake, oriented to person, oriented to place, oriented to time, oriented to situation, CN II-XII grossly intact. ABSENT: motor sensory deficit Psychiatric exam: PRESENT: appropriate affect, normal mood. ABSENT: homicidal ideation, suicidal ideation Results Laboratory Results: 09/01/18 08:11 09/01/18 08:11 09/01/18 09/01/18 08:11 08:11 WBC 6.2 RBC 3.99 L Hgb 12.8 L Hct 35.7 L MCV 89 MCH 32.0 MCHC 35.8 RDW 12.6 Plt Count 106 L Seg Neutrophils % 43.7 Lymphocytes % 33.9 Monocytes % 11.2 Eosinophils % 10.3 H Basophils % 0.9 Absolute Neutrophils 2.7 Absolute Lymphocytes 2.1 Absolute Monocytes 0.7 Absolute Eosinophils 0.6 Absolute Basophils 0.1 Sodium 140.3 Potassium 4.0 Chloride 110 H Carbon Dioxide 24 Anion Gap 6 BUN 10 Creatinine 0.64 Est GFR ( Amer) > 60 Est GFR (Non-Af Amer) > 60 Glucose 91 Calcium 8.3 L Magnesium 1.8 Total Bilirubin 0.8 AST 254 H ALT 813 H Alkaline Phosphatase 44 Total Protein 5.8 L Albumin 3.1 L 08/29/18 14:10 Blood Blood Culture - Final Bacillus Sp. Not Anthracis 08/29/18 15:55 Blood Blood Culture - Final Bacillus Sp. Not Anthracis 08/29/18 10:42 Clean Catch Midstream Urine Culture - Final NO GROWTH 2 DAYS 08/29/18 08/29/18 08/29/18 09:25 09:25 18:46 Creatine Kinase 171 H 1084 H CK-MB (CK-2) 2.47 Troponin I 0.092 NT-Pro-B Natriuret Pep 08/29/18 08/30/18 08/30/18 18:46 00:35 00:35 Creatine Kinase 1413 H CK-MB (CK-2) 13.60 H 12.40 H Troponin I 0.790 0.786 NT-Pro-B Natriuret Pep 08/30/18 08/30/18 08/30/18 06:13 06:13 12:55 Creatine Kinase 1236 H 1264 H CK-MB (CK-2) 11.90 H Troponin I 0.643 NT-Pro-B Natriuret Pep 1310 H 08/30/18 12:55 Creatine Kinase CK-MB (CK-2) 8.93 H Troponin I 0.482 NT-Pro-B Natriuret Pep Impressions: Chest X-Ray 08/29/18 10:27 IMPRESSION: NO ACUTE RADIOGRAPHIC FINDING IN THE CHEST. Head CT 08/30/18 00:00 IMPRESSION: Likely lacunar infarct in the region of the genu of the internal capsule on the right, age uncertain. Consider MRI for further evaluation. Sinus disease. Head MRI 08/31/18 00:00 IMPRESSION: Acute bilateral globus pallidus infarcts. EVIDENCE OF ACUTE STROKE: YES. Qualifiers - * PATIENT BEING DISCHARGED WITH ANY OF THE FOLLOWING DIAGNOSIS: Stroke VTE patient discharged on overlapping Therapy?: No Stroke Pt being discharged on Anti-thrombolytic therapy?: Yes Stroke Pt being discharged on Anti-coagulation therapy?: No Reason(s) for not prescribing Anti-coagulation therapy:: Procedure not indicated Stroke Pt being discharged on Statins?: Yes Acute Heart Failure - Is this a Heart Failure Patient?: No Plan Time Spent: Greater than 30 Minutes
[2018-09-01 12:13] VITALS: BP 92/61
== END 2018-09-01 12:56 | disposition home or self-care (01) | DRG 917 ==
LOC: ER 09:59 → EH 13:11 → 3S 16:06
PROVIDERS: ADMIT Internal Medicine; ATTEND Internal Medicine
DX: T40.1X1A Poisoning by heroin, accidental (unintentional), initial encounter (principal); A41.9 Sepsis, unspecified organism; I63.81 Other cerebral infarction due to occlusion or stenosis of small artery; N17.9 Acute kidney failure, unspecified; G81.90 Hemiplegia, unspecified affecting unspecified side; I95.9 Hypotension, unspecified; T40.601A Poisoning by unspecified narcotics, accidental (unintentional), initial encounter; R09.02 Hypoxemia; F19.10 Other psychoactive substance abuse, uncomplicated; B96.89 Other specified bacterial agents as the cause of diseases classified elsewhere; J45.909 Unspecified asthma, uncomplicated; F90.9 Attention-deficit hyperactivity disorder, unspecified type; R20.0 Anesthesia of skin; Z72.0 Tobacco use
CPT/HCPCS: 36415; 70450; 70551; 71045; 80053; 80061; 80307; 81001; 82550; 82553; 82803; 83036; 83735; 83880; 84443; 84484; 85025; 85610; 87040; 87077; 87086; 93005; 93010; 96361; 96374; 99291; J0696; J1650; J2060; J2310; J7030; S0028

== ENCOUNTER 2019-12-19 10:06 | Emergency (ER) | payer SELFPAY ==
--- NOTE | 2019-12-19 11:39 | ER Document Report ---
ED Medical Screen (RME) - General Chief Complaint: Abscess Stated Complaint: POSSIBLE ABSCESS Time Seen by Provider: 12/19/19 11:37 Primary Care Provider: ANASTASIA MAYNARD MD [Primary Care Provider] - Follow up as needed Mode of Arrival: Ambulatory Information source: Patient Notes: 39-year-old male presented to ED for abscess to the left axilla going down the left arm. He states it started about a week ago. He states it started out as a hair bump that he pinched and then became larger and larger and told now it is redness down his arm. He states the pain is a dull achy and throbbing at times. He states it is gradually gotten bigger over the last week 4/5. States he has had abscesses in the past. States she has never had MRSA. This will need to be I&D. I have greeted and performed a rapid initial assessment of this patient. A comprehensive ED assessment and evaluation of the patient, analysis of test results and completion of medical decision making process will be conducted by an additional ED providers. TRAVEL OUTSIDE OF THE [place] IN LAST 30 DAYS: No - Related Data Allergies/Adverse Reactions: No Known Allergies Allergy (Verified 11/29/17 12:57) Past Medical History - Social History Family history: CAD, CVA, Hyperlipidemia, Hypertension, Malignancy. denies: Arthritis, DM, Thyroid Disfunction Pulmonary Medical History: Reports: Hx Asthma Renal/ Medical History: Denies: Hx Peritoneal Dialysis Musculoskeltal Medical History: Reports Hx Musculoskeletal Trauma Psychiatric Medical History: Reports: Hx Attention Deficit Hyperactivity Disorder Traumatic Medical History: Reports: Hx Fractures - forearm Past Surgical History: Reports: Hx Orthopedic Surgery - RFA - Immunizations Immunizations up to date: Yes Hx Diphtheria, Pertussis, Tetanus Vaccination: Yes - 02/07/2012 Physical Exam - Vital signs Vitals: Temp Pulse Resp BP Pulse Ox 98.4 F 72 16 126/75 H 100 12/19/19 10:12/19/19 10:12/19/19 10:12/19/19 10:12/19/19 10:09 Course - Vital Signs Vital signs: Temp Pulse Resp BP Pulse Ox 98.4 F 72 16 126/75 H 100 12/19/19 10:12/19/19 10:12/19/19 10:12/19/19 10:09 12/19/19 10:09 Doctor's Discharge - Discharge Referrals: ANASTASIA MAYNARD MD [Primary Care Provider] - Follow up as needed
[2019-12-19] MEDS ORDERED: SULFAMETHOXAZOLE/TRIMETHOPRIM 800-160 MG TABLET PO ONE (16:03)
[2019-12-19] MEDS ORDERED: IBUPROFEN 600 MG TABLET PO ONE (16:03)
[2019-12-19] MEDS ORDERED: CEPHALEXIN 500 MG CAPSULE PO ONE (16:03)
[2019-12-19] MEDS ORDERED: LIDOCAINE 1%/EPINEPHRINE INJ 20 ML VIAL INJ ONE (16:03)
[2019-12-19] MEDS ORDERED: DIPH/PERTUSS(ACELL)/TETANUS VAC/PF 0.5 ML SYR (>=10YO) IM ONE (16:04)
--- NOTE | 2019-12-19 16:04 | ER Document Report ---
ED General - General Chief Complaint: Abscess Stated Complaint: POSSIBLE ABSCESS Time Seen by Provider: 12/19/19 11:37 Primary Care Provider: ANASTASIA MAYNARD MD [Primary Care Provider] - Follow up as needed Mode of Arrival: Ambulatory Notes: 39-year-old male no significant past medical history presents with abscess to left arm and axilla and with spreading redness down upper left arm which started after he had an ingrown hair approximately a week ago and then gradually worsened and spread till now. Patient tried to do I&D himself with a knife at home 2 days ago without success. Patient denies any fever, vomiting, pain elsewhere, diabetes, HIV, immune compromise history, IVDU (says he did in the distant past but none recently), recent antibiotics, prior medical evaluation for current symptoms TRAVEL OUTSIDE OF THE [place] IN LAST 30 DAYS: No - Related Data Allergies/Adverse Reactions: No Known Allergies Allergy (Verified 11/29/17 12:57) Past Medical History - General Information source: Patient - Social History Smoking Status: Current Every Day Smoker Family History: None Pulmonary Medical History: Reports: Hx Asthma Renal/ Medical History: Denies: Hx Peritoneal Dialysis Musculoskeletal Medical History: Reports Hx Musculoskeletal Trauma Psychiatric Medical History: Reports: Hx Attention Deficit Hyperactivity Disorder Traumatic Medical History: Reports: Hx Fractures - forearm Past Surgical History: Reports: Hx Orthopedic Surgery - RFA - Immunizations Immunizations up to date: Yes Hx Diphtheria, Pertussis, Tetanus Vaccination: Yes - 02/07/2012 Review of Systems - Review of Systems Notes: REVIEW OF SYSTEMS: CONSTITUTIONAL : Denies fever, chills, or sweats. EENT: Denies recent cold/sinus symptoms, denies throat pain CARDIOVASCULAR: Denies chest pain, TOBI RESPIRATORY: Denies cough, denies shortness of breath. GASTROINTESTINAL: Denies abdominal pain, nausea/vomiting. GENITOURINARY: Denies difficulty urinating, painful urination. MUSCULOSKELETAL: Denies neck pain, back pain. SKIN: + rash or skin lesions. HEMATOLOGIC : Denies easy bruising or bleeding. LYMPHATIC: Denies swollen, enlarged glands. NEUROLOGICAL: Denies headache, denies change in gait. PSYCHIATRIC: Denies anxiety or stress or depression. Physical Exam - Vital signs Vitals: Temp Pulse Resp BP Pulse Ox 98.4 F 72 16 126/75 H 100 12/19/19 10:09 12/19/19 10:09 12/19/19 10:09 12/19/19 10:09 12/19/19 10:09 - Notes Notes: PHYSICAL EXAMINATION: GENERAL: Well-appearing, well-nourished and in no acute distress. HEAD: Atraumatic, normocephalic. EYES: Pupils equal round and appropriate constriction, sclera anicteric, conjunctiva are normal. ENT: nares patent, moist mucous membranes. NECK: Normal range of motion, supple without lymphadenopathy LUNGS: Breath sounds clear to auscultation bilaterally and equal. No wheezes rales or rhonchi. HEART: Regular rate and rhythm without murmurs ABDOMEN: Soft, nontender, no guarding, no masses, no CVAT EXTREMITIES: Normal range of motion, no pitting or edema. No cyanosis. NEUROLOGICAL: Awake, alert, conversing appropriately, moves all extremities spontaneously. PSYCH: Normal mood, normal affect. SKIN: Warm, Dry, normal turgor, approximately 2 x 2 centimeter tender indurated mass in left axilla without any active drainage with area of approximately 8 x 12 cm of erythema and abnormal warmth down medial surface of left arm to approximately elbow. Full range of motion in all articulations, not circumferential, distal pulses sensation and strength normal Course - Re-evaluation Re-evalutation: 12/19/19 16:07 Very well-appearing patient with abscess and surrounding cellulitis without any systemic symptoms, very well-appearing, normal vitals, no risk factors for complicated course. Will update Tdap for patient self I&D 2 days ago, start antibiotics, and perform ultrasound and I&D if abscess is found. Likely discharge with antibiotics, 2-day wound check by PCP and return precautions. 12/19/19 16:47 Bedside ultrasound showed no discrete abscess pocket to drain. Discussed at length that this did not mean that there was no abscess forming but that it was likely too early to be drained. Instructed patient regarding necessity of antibiotics for cellulitis and necessity of close follow-up in surgery clinic or back in the ED. Gave patient extensive return to ED precautions which she demonstrated understanding of. Patient ready for discharge. - Vital Signs Vital signs: Temp Pulse Resp BP Pulse Ox 98.8 F 82 16 124/62 100 12/19/19 14:00 12/19/19 14:00 12/19/19 14:00 12/19/19 14:00 12/19/19 14:00 Discharge - Discharge Clinical Impression: Cellulitis Qualifiers: Site of cellulitis: extremity Site of cellulitis of extremity: upper extremity Laterality: left Qualified Code(s): L03.114 - Cellulitis of left upper limb Disposition: HOME, SELF-CARE Instructions: Cephalexin ([facility]), Trimethoprim-Sulfa ([facility]) Additional Instructions: Cellulitis You have an infection of your skin and underlying soft tissues called cellulitis. This is due to bacteria, which can enter through any break in the skin, or even through an irritated hair follicle. Untreated, cellulitis will usually worsen. Antibiotics are required. Use warm soaks on area for 20 minutes 4 times a day over the next few days to try to help a abscess come to the surface. Most infections respond quickly to the right medication. Follow-up care is important, however, to check for abscess (boil) formation, unsuspected foreign body, or resistant infection. If you develop fever, chills, or if the area of infection is becoming rapidly more swollen or painful, return to the emergency department immediately. Follow-up in surgery clinic in 2 to 3 days or in the emergency department for a wound check. Prescriptions: Sulfamethoxazole/Trimethoprim [Bactrim Ds Tablet] 1 tab PO BID 5 Days #10 tablet Cephalexin Monohydrate [Keflex 500 mg Capsule] 500 mg PO Q6H 5 Days #20 capsule Referrals: ANASTASIA MAYNARD MD [Primary Care Provider] - Follow up as needed GREGG YO MD [ACTIVE STAFF] - 12/23/19
[2019-12-19 17:09] VITALS: BP 127/68
--- OUTSIDE RECORDS SUMMARY | 2019-12-20 15:43 | XMS REPORT ---
:1980 [facility] [place] [address] [place] [address] Care Team Providers Name Role Phone Xavier Attending Clinician Unavailable Carolee Attending Clinician Unavailable MD Mason Hamilton Attending Clinician Unavailable MD Mason Hamilton Attending Clinician Unavailable Alfonso Attending Clinician Unavailable Ramone FAJARDO Attending Clinician Unavailable MCKENZIE LOPES Attending Clinician Unavailable MD Lucinda Rdz Admitting Clinician Unavailable Allergies, Adverse Reactions, Alerts This patient has no known allergies or adverse reactions. Medications This patient has no known medications. Problems This patient has no known problems. Procedures Procedure Date / Time Performed Performing Clinician Devic e OFFICE/OUTPATIENT VISIT, EST 2019-04-04 09:30:00 MANUAL THERAPY 2019-02-22 13:00:00 THERAPEUTIC EXERCISES 2019-02-22 13:00:00 THERAPEUTIC ACTIVITIES 2019-02-22 13:00:00 THERAPEUTIC EXERCISES 2019-01-15 14:00:00 THERAPEUTIC ACTIVITIES 2019-01-15 14:00:00 MANUAL THERAPY 2019-01-15 14:00:00 VASOPNEUMATIC DEVICE THERAPY 2019-01-15 14:00:00 THERAPEUTIC ACTIVITIES 2019-01-11 15:00:00 MANUAL THERAPY 2019-01-11 15:00:00 VASOPNEUMATIC DEVICE THERAPY 2019-01-11 15:00:00 THERAPEUTIC EXERCISES 2019-01-11 15:00:00 VASOPNEUMATIC DEVICE THERAPY 2019-01-09 09:30:00 THERAPEUTIC ACTIVITIES 2019-01-09 09:30:00 MANUAL THERAPY 2019-01-09 09:30:00 THERAPEUTIC EXERCISES 2019-01-09 09:30:00 PT Re-evaluation, Established POC 2019-01-09 09:30:00 OFFICE/OUTPATIENT VISIT, EST 2018-12-07 09:45:00 OFFICE/OUTPATIENT VISIT, EST 2018-11-19 11:00:00 PROLONGED SERVICE, OFFICE 2018-11-19 11:00:00 OFFICE/OUTPATIENT VISIT, EST 2018-10-22 09:45:00 PROLONGED SERVICE, OFFICE 2018-10-22 09:45:00 OFFICE/OUTPATIENT VISIT, EST 2018-09-20 11:00:00 OFFICE CONSULTATION 2018-09-05 10:00:00 Results Test Description Test Time Test Comments Text Results Atomic Results Result Comments RADIOLOGY 2015-04-[address] [address] 14:15:00 ---- Patient: HUBER GIBBS : 1980 Sex: M Address: [address] [place] [address] [place] [address] Unit #: [id number] [facility] SEQ #: [id number] Location: SURGERY Room #: Ordering: CAROLINE FAJARDO MD Diagnosis: [id number] ROTATR-CUFF TEAR/RUPTRU/[id number] ---- CHEST 2 V IEWS PA AND LATERAL Clinical Information: [id number] Rotator cuff TEAR/RUPTRU/[id number] The heart and mediastinum appear normal. The joelle are within normal limits. The lungs are clear. No pleural abnormalities are evident. No acute skeletal abnormalities. Impression: Normal chest Final report marco ctronically signed by: Juan Khan MD Signed by: JUAN KHAN MD 04/07/15 1411 Assessments Condition Name Status Diagnosis Date Treating Clinici an Nondisp fx of cuboid bone of r foot, subs Active for fx w nonunion Pain in right ankle and joints of right foot Active Unsp fracture of right calcaneus, subs for Active fx w nonunion Unsp rotatr-cuff tear/ruptr of right Active shoulder, not trauma Pain in right shoulder Active Effusion, right shoulder Active Muscle weakness (generalized) Active Encounter for other specified surgical Active aftercare Pain in right shoulder Active Effusion, right shoulder Active Muscle weakness (generalized) Active Encounter for other specified surgical Active aftercare Pain in right shoulder Active Effusion, right shoulder Active Muscle weakness (generalized) Active Encounter for other specified surgical Active aftercare Pain in right shoulder Active Effusion, right shoulder Active Muscle weakness (generalized) Active Encounter for other specified surgical Active aftercare Unspecified rotator cuff tear or rupture of Active 0 right shoulder, not specified as traumatic Unsp rotatr-cuff tear/ruptr of right Active shoulder, not trauma Superior glenoid labrum lesion of right Active shoulder, subs Primary osteoarthritis, right shoulder Active Bicipital tendinitis, right shoulder Active Nondisp fx of cuboid bone of r foot, subs Active for fx w nonunion Unsp fracture of right talus, subs for fx w Active delay heal Unsp rotatr-cuff tear/ruptr of right Active shoulder, not trauma Superior glenoid labrum lesion of right Active shoulder, subs Bicipital tendinitis, right shoulder Active Unsp rotatr-cuff tear/ruptr of right Active shoulder, not trauma Nondisp fx of cuboid bone of r foot, subs Active for fx w nonunion Unsp fracture of right calcaneus, subs for Active fx w routn heal Other sprain of right shoulder joint, Active initial encounter Unsp rotatr-cuff tear/ruptr of right Active shoulder, not trauma Unsp fracture of right calcaneus, subs for Active fx w routn heal Nondisp fx of cuboid bone of r foot, subs Active for fx w nonunion Crushing injury of right foot, initial Active encounter Inj musc/tend the rotator cuff of right Active shoulder, init Pain in right shoulder Active Pain in right ankle and joints of right foot Active Encounters Start End Encounter Admission Attending Care Care Encounter Date/Time Date/Time Type Type Clinicians Facility Department ID 2019-04-04 2019-04-04 Outpatient Xavier [facility] [id number] 09:30:00 09:30:00 [facility] [id number] \T\ Sports [id number] Medicine [id number] 2019-02-22 2019-02-22 Outpatient [facility] [id number] 13:00:00 13:00:00 [facility] [id number] \T\ Sports [id number] Medicine [id number] 2019-01-15 2019-01-15 Outpatient [facility] CC4 [id number] 14:00:00 14:00:00 [facility] [id number] \T\ Sports [id number] [facility] [id number] 2019-01-11 2019-01-11 Outpatient [facility] [id number] 15:00:00 15:00:00 [facility] [id number] \T\ Sports [id number] [facility] [id number] 2019-01-09 2019-01-09 Outpatient [facility] A21 [id number] 09:30:00 09:30:00 [facility] [id number] \T\ Sports [id number] [facility] [id number] 2018-12-20 2018-12-20 Trenton Perkins [facility] 2 [id number] 10:05:10 17:21:00 Trent[facility] Hamilton 2018-12-07 2018-12-07 Outpatient Alfonso [facility] [id number] 09:45:00 09:45:00 [facility] [id number] \T\ Sports [id number] Medicine [id number] 2018-11-19 2018-11-19 Outpatient Xavier [facility] [id number] 11:00:00 11:00:00 [facility] [id number] \T\ Sports [id number] Medicine [id number] 2018-10-22 2018-10-22 Outpatient Xavier [facility] [id number] 09:45:00 09:45:00 [facility] [id number] \T\ Sports [id number] Medicine [id number] 2018-09-20 2018-09-20 Outpatient Xavier [facility] [id number] 11:00:00 11:00:00 [facility] [id number] \T\ Sports [id number] [facility] [id number] 2018-09-05 2018-09-05 Outpatient Xavier [facility] [id number] 10:00:00 10:00:00 [facility] [id number] \T\ Sports [id number] [facility] [id number] 2015-04-13 2015-04-13 Outpatient OLGA LIDIA SCOTTY, [facility] [id number] 00:08:00 00:08:00 CAROLINE 17 2015-03-09 2015-03-09 Emergency ED MOSES, [facility] [id number] 20:33:00 22:22:00 JEWELL Tejeda Payers Payer Name Policy Type Policy Number Effective Date Expiration D ate Social History This patient has no known social history. Vital Signs Vital Name Observation Time Observation Value Comments WEIGHT 2015-04-13 14:45:00 96.6 kg HEIGHT 2015-04-13 14:45:00 182.457332 cm WEIGHT 2015-04-13 00:08:00 96.6 kg HEIGHT 2015-04-13 00:08:00 182.216094 cm WEIGHT 2015-03-09 20:33:00 99.4 kg
== END 2019-12-19 17:09 | disposition home or self-care (01) ==
LOC: ER 10:06
DX: L03.114 Cellulitis of left upper limb (principal); F17.200 Nicotine dependence, unspecified, uncomplicated; J45.909 Unspecified asthma, uncomplicated; Z23 Encounter for immunization
CPT/HCPCS: 99283; 90471; 90715; J3490